=== PATIENT | female | born 1945 | race Two or more races ===

== ENCOUNTER 2016-12-05 19:28 | Inpatient (IN) | payer MEDICAID, MEDICARE ==
[~2016-12-05] VITALS: Ht 165.1 cm; Wt 93.0 kg
[2016-12-05 19:52] VITALS: BP 153/75
[2016-12-05 20:44] LABS: BASOPHILS % (AUTO) 0.4 % (0.0-2.0); DIFF TOTAL % 100 %; EOSINOPHILS # (AUTO) 0.1 /CMM (0.0-0.7); EOSINOPHILS % (AUTO) 2.6 % (0.0-6.0); HEMATOCRIT 22 % (33-45); HEMOGLOBIN 7.2 g/dL (11.5-14.8); LYMPHOCYTES # (AUTO) 1.2 /CMM (0.8-4.8); LYMPHOCYTES % (AUTO) 25.3 % (20.0-44.0); MEAN CORPUSCULAR HEMOGLOBIN 29 PG (26.0-33.0); MEAN CORPUSCULAR HGB CONC 32 g/dl (31.0-36.0); MEAN CORPUSCULAR VOLUME 90 fL (82-100); MONOCYTES # (AUTO) 0.3 /CMM (0.1-1.30); MONOCYTES % (AUTO) 5.1 % (2.0-12.0); NEUTROPHILS # (AUTO) 3.3 /CMM (1.8-8.9); NEUTROPHILS % (AUTO) 66.6 % (43.0-81.0); PLATELET COUNT (AUTO) 165 /CMM (150-450); RED BLOOD CELL COUNT(AUTO) 2.49 MIL/uL (4.0-5.2); WHITE BLOOD COUNT (AUTO) 4.9 K/uL (4.3-11.0)
[2016-12-05 20:56] LABS: CALCIUM, SERUM 8.6 mg/dL (8.5-10.1); CREATININE 1.5 mg/dL (0.6-1.3); POTASSIUM 2.9 mmol/L (3.5-5.1)
[2016-12-05 21:00] LABS: INR 1.04 (0.87-1.13); PROTHROMBIN TIME 10.9 SECS (9.5-12.7)
[2016-12-05 21:02] LABS: ALBUMIN 2.7 g/dL (3.4-5.0); BILIRUBIN,DIRECT 0.2 mg/dL (0.0-0.2); BILIRUBIN,TOTAL 0.5 mg/dL (0.2-1.0); INDIRECT BILIRUBIN 0.3 mg/dL (0.0-1.1); TOTAL PROTEIN, SERUM 6.8 g/dL (6.4-8.2)
[2016-12-05 21:07] VITALS: BP 153/75
[2016-12-05 21:09] LABS: IRON, SERUM 70 ug/dl (50-175); PERCENT SATURATION 39 % (14-33); TOTAL IRON BINDING CAPACITY 182 ug/dl (250-450)
[2016-12-05] MEDS ORDERED: ISOS5TAB PO (21:37)
[2016-12-05] MEDS ORDERED: CARV6.25 PO (21:37)
[2016-12-05] MEDS ORDERED: VIT1TABL44 GT (21:37)
[2016-12-05] MEDS ORDERED: DARB150D IV (21:37)
[2016-12-05] MEDS ORDERED: ROPI0.5T GT (21:37)
[2016-12-05] MEDS ORDERED: CLOP75TA2 GT (21:37)
[2016-12-05] MEDS ORDERED: ATOR20TA PO (21:37)
[2016-12-05] MEDS ORDERED: BUSP5TAB3 PO (21:37)
[2016-12-05] MEDS ORDERED: GABA-532 PO (21:37)
[2016-12-05] MEDS ORDERED: OMEP40CA37 PO (21:37)
[2016-12-05] MEDS ORDERED: FERR300L PO (21:37)
[2016-12-05] MEDS ORDERED: ASPI81TA2 PO (21:37)
[2016-12-05] MEDS ORDERED: HYDR-3326 GT (21:37)
[2016-12-05] MEDS ORDERED: IRON100V2 IV (21:37)
[2016-12-05] MEDS ORDERED: DOCU-25 PO (21:37)
[2016-12-05 21:52] VITALS: BP 145/66
[2016-12-05] MEDS ORDERED: HYDROCODONE/APAP 5/325MG 1 EACH TABLET ONE (23:01)
[2016-12-05] MEDS: HYDROCODONE/APAP 5/325MG 1 EACH TABLET GT PRN (23:06)
[2016-12-05 23:30] VITALS: BP 158/72
[2016-12-06] VITALS (11 sets, daily range): BP systolic 128–158; BP diastolic 41–101
[2016-12-06] MEDS ORDERED: [UNRECOGNIZED DRUG - OTHER] IV SCH (00:30)
[2016-12-06] MEDS ORDERED: IRON SUCROSE COMPLEX IV SCH (00:30)
[2016-12-06] MEDS ORDERED: DARBEPOETIN ALFA IV SCH (00:30)
[2016-12-06] MEDS ORDERED: IV NS 0.9% 250 ML IV ONE (01:33)
[2016-12-06] MEDS ORDERED: BLOOD IV SET 1 EA INFUS.SET MC ONE (01:33)
[2016-12-06] MEDS ORDERED: HYDROCODONE/APAP 5/325MG 1 EACH TABLET ONE (02:56)
[2016-12-06] MEDS: HYDROCODONE/APAP 5/325MG 1 EACH TABLET GT PRN (03:01)
[2016-12-06] MEDS ORDERED: LORAZEPAM 1 MG TABLET ONE (03:21)
[2016-12-06] MEDS: LORAZEPAM 1 MG TABLET GT PRN ×3 (03:24→21:08)
[2016-12-06] MEDS ORDERED: RENAL NOVASOURCE 1,000 ML BOTTLE GT SCH (07:00)
[2016-12-06] MEDS: HYDROCODONE/APAP 5/325MG 1 EACH TABLET GT SCH ×4 (08:43→21:09)
[2016-12-06] MEDS: VIT B CMPLX 3/FA/VIT C/BIOTIN 1 TAB TABLET GT SCH (08:54)
[2016-12-06] MEDS: FERROUS SULFATE UDC 300 MG/5 ML UDC PO SCH (08:54)
[2016-12-06] MEDS: DOCUSATE SODIUM LIQ 100 MG/10 ML UDC GT SCH ×2 (08:54→16:08)
[2016-12-06] MEDS: ropiniROLE 0.5 MG TABLET GT SCH ×3 (08:54→16:07)
[2016-12-06] MEDS: GABAPENTIN 100 MG CAPSULE GT SCH ×3 (08:55→16:08)
[2016-12-06] MEDS: busPIRone 5 MG TABLET GT SCH ×2 (08:55→16:08)
[2016-12-06] MEDS: CARVEDILOL 6.25 MG TABLET GT SCH (08:55)
[2016-12-06] MEDS: ISOSORBIDE DINITRATE (5MG) 5 MG TABLET GT SCH ×3 (08:55→16:08)
[2016-12-06] MEDS ORDERED: Medication Not On Formulary EA (Omeprazole 40 MG) PO SCH (09:00)
[2016-12-06] MEDS: PANTOPRAZOLE 40 MG/PACK PACK GT SCH ×2 (09:02→21:06)
[2016-12-06 14:00] LABS: RETICULOCYTE COUNT 2.9 % (0.6-2.5)
[2016-12-06] MEDS ORDERED: Z GUARD REMEDY 2 OZ OINT TP PRN (14:30)
[2016-12-06 14:36] LABS: BASOPHILS % (AUTO) 0.3 % (0.0-2.0); DIFF TOTAL % 100 %; EOSINOPHILS # (AUTO) 0.1 /CMM (0.0-0.7); EOSINOPHILS % (AUTO) 1.7 % (0.0-6.0); HEMATOCRIT 23 % (33-45); HEMOGLOBIN 7.5 g/dL (11.5-14.8); LYMPHOCYTES # (AUTO) 1.2 /CMM (0.8-4.8); LYMPHOCYTES % (AUTO) 21.5 % (20.0-44.0); MEAN CORPUSCULAR HEMOGLOBIN 30 PG (26.0-33.0); MEAN CORPUSCULAR HGB CONC 33 g/dl (31.0-36.0); MEAN CORPUSCULAR VOLUME 89 fL (82-100); MONOCYTES # (AUTO) 0.3 /CMM (0.1-1.30); MONOCYTES % (AUTO) 5.2 % (2.0-12.0); NEUTROPHILS # (AUTO) 3.9 /CMM (1.8-8.9); NEUTROPHILS % (AUTO) 71.3 % (43.0-81.0); PLATELET COUNT (AUTO) 128 /CMM (150-450); RED BLOOD CELL COUNT(AUTO) 2.53 MIL/uL (4.0-5.2); WHITE BLOOD COUNT (AUTO) 5.5 K/uL (4.3-11.0)
[2016-12-06] MEDS ORDERED: EPOETIN ALFA (10,000 UNIT) 10,000 UNIT/ML VIAL IV ONE (15:00)
[2016-12-06 15:05] LABS: CREATININE 1.5 mg/dL (0.6-1.3); POTASSIUM 3.1 mmol/L (3.5-5.1)
[2016-12-06 15:21] LABS: THYROID STIMULATING HORMONE 0.428 uIU/mL (0.358-3.74); URIC ACID 2.2 mg/dL (2.6-7.2)
[2016-12-06] MEDS: HYDROGEL DRESSING 90 GM TUBE TP SCH (16:07)
[2016-12-06] MEDS: Z GUARD REMEDY 2 OZ OINT TP SCH ×2 (16:07→16:15)
[2016-12-06] MEDS: ATORVASTATIN 10 MG TABLET GT SCH (21:06)
[2016-12-07] VITALS (8 sets, daily range): BP systolic 109–139; BP diastolic 50–71
[2016-12-07] MEDS: LORAZEPAM 1 MG TABLET GT PRN ×2 (06:32→22:31)
[2016-12-07] MEDS: FERROUS SULFATE UDC 300 MG/5 ML UDC PO SCH (08:33)
[2016-12-07] MEDS: DOCUSATE SODIUM LIQ 100 MG/10 ML UDC GT SCH ×2 (08:33→17:03)
[2016-12-07] MEDS: VIT B CMPLX 3/FA/VIT C/BIOTIN 1 TAB TABLET GT SCH (08:33)
[2016-12-07] MEDS: ISOSORBIDE DINITRATE (5MG) 5 MG TABLET GT SCH ×3 (08:34→17:03)
[2016-12-07 08:35] LABS: BASOPHILS % (AUTO) 0.2 % (0.0-2.0); DIFF TOTAL % 100 %; EOSINOPHILS # (AUTO) 0.1 /CMM (0.0-0.7); EOSINOPHILS % (AUTO) 2.9 % (0.0-6.0); HEMATOCRIT 24 % (33-45); HEMOGLOBIN 7.8 g/dL (11.5-14.8); LYMPHOCYTES % (AUTO) 19.4 % (20.0-44.0); MEAN CORPUSCULAR HEMOGLOBIN 30 PG (26.0-33.0); MEAN CORPUSCULAR HGB CONC 33 g/dl (31.0-36.0); MEAN CORPUSCULAR VOLUME 90 fL (82-100); MONOCYTES # (AUTO) 0.4 /CMM (0.1-1.30); NEUTROPHILS # (AUTO) 3.5 /CMM (1.8-8.9); NEUTROPHILS % (AUTO) 70.5 % (43.0-81.0); PLATELET COUNT (AUTO) 147 /CMM (150-450); RED BLOOD CELL COUNT(AUTO) 2.63 MIL/uL (4.0-5.2)
[2016-12-07] MEDS: PANTOPRAZOLE 40 MG/PACK PACK GT SCH ×2 (08:35→22:32)
[2016-12-07] MEDS: ropiniROLE 0.5 MG TABLET GT SCH ×3 (08:35→17:02)
[2016-12-07] MEDS: GABAPENTIN 100 MG CAPSULE GT SCH ×3 (08:35→17:02)
[2016-12-07] MEDS: busPIRone 5 MG TABLET GT SCH ×2 (08:36→17:02)
[2016-12-07] MEDS: HYDROCODONE/APAP 5/325MG 1 EACH TABLET GT SCH ×4 (08:38→22:31)
[2016-12-07] MEDS: CARVEDILOL 6.25 MG TABLET GT SCH (08:38)
[2016-12-07 08:39] LABS: CALCIUM, SERUM 7.7 mg/dL (8.5-10.1); CREATININE 2.1 mg/dL (0.6-1.3); POTASSIUM 3.2 mmol/L (3.5-5.1)
[2016-12-07] MEDS: Z GUARD REMEDY 2 OZ OINT TP SCH ×2 (08:39→17:05)
[2016-12-07] MEDS: HYDROGEL DRESSING 90 GM TUBE TP SCH (08:40)
[2016-12-07] MEDS ORDERED: POTASSIUM CHLORIDE 20 MEQ TAB.PRT.SR PO ONE (13:00)
[2016-12-07] MEDS: MAGNESIUM HYDROXIDE 30 ML UDC PO PRN (17:04)
[2016-12-07] MEDS: RENAL NOVASOURCE 1,000 ML BOTTLE GT SCH (17:05)
[2016-12-07] MEDS: ATORVASTATIN 10 MG TABLET GT SCH (22:30)
[2016-12-08] VITALS (12 sets, daily range): BP systolic 120–159; BP diastolic 51–85
[2016-12-08 06:40] LABS: BASOPHILS % (AUTO) 0.4 % (0.0-2.0); DIFF TOTAL % 100 %; EOSINOPHILS # (AUTO) 0.2 /CMM (0.0-0.7); EOSINOPHILS % (AUTO) 3.7 % (0.0-6.0); HEMATOCRIT 22 % (33-45); HEMOGLOBIN 7.2 g/dL (11.5-14.8); LYMPHOCYTES # (AUTO) 1.6 /CMM (0.8-4.8); LYMPHOCYTES % (AUTO) 36.8 % (20.0-44.0); MEAN CORPUSCULAR HEMOGLOBIN 30 PG (26.0-33.0); MEAN CORPUSCULAR HGB CONC 33 g/dl (31.0-36.0); MEAN CORPUSCULAR VOLUME 89 fL (82-100); MONOCYTES # (AUTO) 0.4 /CMM (0.1-1.30); MONOCYTES % (AUTO) 8.2 % (2.0-12.0); NEUTROPHILS # (AUTO) 2.2 /CMM (1.8-8.9); NEUTROPHILS % (AUTO) 50.9 % (43.0-81.0); PLATELET COUNT (AUTO) 131 /CMM (150-450); RED BLOOD CELL COUNT(AUTO) 2.41 MIL/uL (4.0-5.2); WHITE BLOOD COUNT (AUTO) 4.3 K/uL (4.3-11.0)
[2016-12-08 06:50] LABS: CALCIUM, SERUM 7.4 mg/dL (8.5-10.1); CREATININE 2.5 mg/dL (0.6-1.3); POTASSIUM 3.7 mmol/L (3.5-5.1)
[2016-12-08] MEDS: GABAPENTIN 100 MG CAPSULE GT SCH ×3 (08:59→16:47)
[2016-12-08] MEDS: DOCUSATE SODIUM LIQ 100 MG/10 ML UDC GT SCH ×2 (09:00→16:46)
[2016-12-08] MEDS: VIT B CMPLX 3/FA/VIT C/BIOTIN 1 TAB TABLET GT SCH (09:00)
[2016-12-08] MEDS: PANTOPRAZOLE 40 MG/PACK PACK GT SCH ×2 (09:00→21:03)
[2016-12-08] MEDS: ropiniROLE 0.5 MG TABLET GT SCH ×3 (09:00→16:46)
[2016-12-08] MEDS: ISOSORBIDE DINITRATE (5MG) 5 MG TABLET GT SCH ×3 (09:00→16:48)
[2016-12-08] MEDS: busPIRone 5 MG TABLET GT SCH ×2 (09:00→16:47)
[2016-12-08] MEDS: FERROUS SULFATE UDC 300 MG/5 ML UDC PO SCH (09:00)
[2016-12-08] MEDS: CARVEDILOL 6.25 MG TABLET GT SCH ×2 (09:00→13:30)
[2016-12-08] MEDS: HYDROCODONE/APAP 5/325MG 1 EACH TABLET GT SCH ×3 (09:02→16:50)
[2016-12-08] MEDS: HYDROGEL DRESSING 90 GM TUBE TP SCH (09:03)
[2016-12-08] MEDS: Z GUARD REMEDY 2 OZ OINT TP SCH ×2 (09:03→16:50)
[2016-12-08 10:19] LABS: VIT D, 25-HYDROXY 9.3 ng/mL (30.0-100.0)
[2016-12-08] MEDS ORDERED: BLOOD IV SET 1 EA INFUS.SET MC ONE (10:31)
[2016-12-08] MEDS ORDERED: MORPHINE SULFATE INJ 2 MG/ML DISP.SYRIN IV ONE (11:30)
[2016-12-08] MEDS: MAGNESIUM HYDROXIDE 30 ML UDC PO PRN (13:30)
[2016-12-08] MEDS: BISACODYL SUPP (10 MG) 10 MG/SUPP.RECT SUPP.RECT RC PRN (16:47)
[2016-12-08] MEDS: ATORVASTATIN 10 MG TABLET GT SCH (21:03)
[2016-12-08] MEDS: RENAL NOVASOURCE 1,000 ML BOTTLE GT SCH (21:03)
[2016-12-08] MEDS: HYDROMORPHONE 1 MG/1 ML DISP.SYRIN IV PRN (21:12)
[2016-12-09] VITALS (13 sets, daily range): BP systolic 98–144; BP diastolic 51–66
[2016-12-09] MEDS ORDERED: BLOOD IV SET 1 EA INFUS.SET MC ONE (00:51)
[2016-12-09] MEDS ORDERED: IV NS 0.9% 250 ML IV ONE (00:51)
[2016-12-09] MEDS: oxyCODONE IR immediate release 5 MG CAPSULE PO PRN (01:41)
[2016-12-09] MEDS: LORAZEPAM 1 MG TABLET GT PRN ×2 (03:00→15:38)
[2016-12-09 07:40] LABS: BASOPHILS % (AUTO) 0.5 % (0.0-2.0); DIFF TOTAL % 100 %; EOSINOPHILS # (AUTO) 0.2 /CMM (0.0-0.7); EOSINOPHILS % (AUTO) 3.2 % (0.0-6.0); HEMATOCRIT 29 % (33-45); HEMOGLOBIN 9.6 g/dL (11.5-14.8); LYMPHOCYTES # (AUTO) 1.3 /CMM (0.8-4.8); LYMPHOCYTES % (AUTO) 26.6 % (20.0-44.0); MEAN CORPUSCULAR HEMOGLOBIN 29 PG (26.0-33.0); MEAN CORPUSCULAR HGB CONC 33 g/dl (31.0-36.0); MEAN CORPUSCULAR VOLUME 88 fL (82-100); MONOCYTES # (AUTO) 0.3 /CMM (0.1-1.30); MONOCYTES % (AUTO) 7.2 % (2.0-12.0); NEUTROPHILS % (AUTO) 62.5 % (43.0-81.0); PLATELET COUNT (AUTO) 134 /CMM (150-450); WHITE BLOOD COUNT (AUTO) 4.8 K/uL (4.3-11.0)
[2016-12-09 07:55] LABS: CALCIUM, SERUM 7.6 mg/dL (8.5-10.1); CREATININE 2.4 mg/dL (0.6-1.3); POTASSIUM 3.8 mmol/L (3.5-5.1)
[2016-12-09] MEDS: ISOSORBIDE DINITRATE (5MG) 5 MG TABLET GT SCH ×3 (08:53→16:36)
[2016-12-09] MEDS: busPIRone 5 MG TABLET GT SCH ×2 (08:53→16:36)
[2016-12-09] MEDS: PANTOPRAZOLE 40 MG/PACK PACK GT SCH ×2 (08:54→20:56)
[2016-12-09] MEDS: GABAPENTIN 100 MG CAPSULE GT SCH ×3 (08:54→16:36)
[2016-12-09] MEDS: ropiniROLE 0.5 MG TABLET GT SCH ×3 (08:54→16:36)
[2016-12-09] MEDS: VIT B CMPLX 3/FA/VIT C/BIOTIN 1 TAB TABLET GT SCH (08:54)
[2016-12-09] MEDS: DOCUSATE SODIUM LIQ 100 MG/10 ML UDC GT SCH ×2 (08:54→16:35)
[2016-12-09] MEDS: FERROUS SULFATE UDC 300 MG/5 ML UDC PO SCH (08:54)
[2016-12-09] MEDS: CARVEDILOL 6.25 MG TABLET GT SCH (08:59)
[2016-12-09] MEDS: Z GUARD REMEDY 2 OZ OINT TP SCH ×2 (09:06→16:38)
[2016-12-09] MEDS: HYDROGEL DRESSING 90 GM TUBE TP SCH (09:06)
[2016-12-09] MEDS: HYDROMORPHONE 1 MG/1 ML DISP.SYRIN IV PRN ×3 (09:52→20:57)
[2016-12-09] MEDS ORDERED: IV SET PRIMARY PUMP SET 1 EA INFUS.SET MC ONE (17:32)
[2016-12-09] MEDS: CEFTRIAXONE 1 G in IV D5W 50 ML IV SCH (17:33)
[2016-12-09] MEDS: RENAL NOVASOURCE 1,000 ML BOTTLE GT SCH (20:57)
[2016-12-09] MEDS: ATORVASTATIN 10 MG TABLET GT SCH (21:00)
[2016-12-10] VITALS (7 sets, daily range): BP systolic 100–135; BP diastolic 46–84
[2016-12-10 07:47] LABS: BASOPHILS % (AUTO) 0.2 % (0.0-2.0); DIFF TOTAL % 100 %; EOSINOPHILS # (AUTO) 0.2 /CMM (0.0-0.7); EOSINOPHILS % (AUTO) 3.7 % (0.0-6.0); HEMATOCRIT 29 % (33-45); HEMOGLOBIN 9.7 g/dL (11.5-14.8); LYMPHOCYTES # (AUTO) 1.3 /CMM (0.8-4.8); LYMPHOCYTES % (AUTO) 23.2 % (20.0-44.0); MEAN CORPUSCULAR HEMOGLOBIN 29 PG (26.0-33.0); MEAN CORPUSCULAR HGB CONC 33 g/dl (31.0-36.0); MEAN CORPUSCULAR VOLUME 89 fL (82-100); MONOCYTES # (AUTO) 0.4 /CMM (0.1-1.30); MONOCYTES % (AUTO) 7.4 % (2.0-12.0); NEUTROPHILS # (AUTO) 3.6 /CMM (1.8-8.9); NEUTROPHILS % (AUTO) 65.5 % (43.0-81.0); PLATELET COUNT (AUTO) 134 /CMM (150-450); RED BLOOD CELL COUNT(AUTO) 3.31 MIL/uL (4.0-5.2); WHITE BLOOD COUNT (AUTO) 5.5 K/uL (4.3-11.0)
[2016-12-10] MEDS: ISOSORBIDE DINITRATE (5MG) 5 MG TABLET GT SCH ×3 (08:12→16:39)
[2016-12-10] MEDS: DOCUSATE SODIUM LIQ 100 MG/10 ML UDC GT SCH ×2 (08:12→16:38)
[2016-12-10] MEDS: ropiniROLE 0.5 MG TABLET GT SCH ×3 (08:12→16:39)
[2016-12-10] MEDS: PANTOPRAZOLE 40 MG/PACK PACK GT SCH ×2 (08:12→21:09)
[2016-12-10] MEDS: FERROUS SULFATE UDC 300 MG/5 ML UDC PO SCH (08:12)
[2016-12-10] MEDS: GABAPENTIN 100 MG CAPSULE GT SCH ×3 (08:12→16:39)
[2016-12-10] MEDS: VIT B CMPLX 3/FA/VIT C/BIOTIN 1 TAB TABLET GT SCH (08:12)
[2016-12-10] MEDS: busPIRone 5 MG TABLET GT SCH ×2 (08:13→16:39)
[2016-12-10] MEDS: CARVEDILOL 6.25 MG TABLET GT SCH (08:13)
[2016-12-10 08:24] LABS: CALCIUM, SERUM 7.5 mg/dL (8.5-10.1); CREATININE 2.9 mg/dL (0.6-1.3); POTASSIUM 3.8 mmol/L (3.5-5.1)
[2016-12-10] MEDS: HYDROGEL DRESSING 90 GM TUBE TP SCH (09:50)
[2016-12-10] MEDS: Z GUARD REMEDY 2 OZ OINT TP SCH ×2 (09:50→16:51)
[2016-12-10] MEDS: LORAZEPAM 1 MG TABLET GT PRN ×2 (09:56→23:13)
[2016-12-10] MEDS: oxyCODONE IR immediate release 5 MG CAPSULE PO PRN ×2 (09:57→16:22)
[2016-12-10] MEDS: HYDROMORPHONE 1 MG/1 ML DISP.SYRIN IV PRN ×2 (13:30→21:10)
[2016-12-10] MEDS: BISACODYL SUPP (10 MG) 10 MG/SUPP.RECT SUPP.RECT RC PRN (14:39)
[2016-12-10] MEDS: CEFTRIAXONE 1 G in IV D5W 50 ML IV SCH (16:44)
[2016-12-10] MEDS: ATORVASTATIN 10 MG TABLET GT SCH (21:09)
[2016-12-10] MEDS: HEPARIN SODIUM, PORCINE 5000 UNITS/1 ML VIAL SQ SCH (21:10)
[2016-12-10] MEDS: RENAL NOVASOURCE 1,000 ML BOTTLE GT SCH (21:10)
[2016-12-11] VITALS: BP 131/55
[2016-12-11] MEDS: HYDROMORPHONE 1 MG/1 ML DISP.SYRIN IV PRN ×2 (03:18→12:46)
[2016-12-11 04:00] VITALS: BP 102/64
[2016-12-11 08:00] VITALS: BP 127/59
[2016-12-11] MEDS: PANTOPRAZOLE 40 MG/PACK PACK GT SCH (08:03)
[2016-12-11] MEDS: DOCUSATE SODIUM LIQ 100 MG/10 ML UDC GT SCH ×2 (08:03→17:58)
[2016-12-11] MEDS: FERROUS SULFATE UDC 300 MG/5 ML UDC PO SCH (08:03)
[2016-12-11] MEDS: busPIRone 5 MG TABLET GT SCH ×2 (08:03→17:59)
[2016-12-11] MEDS: CARVEDILOL 6.25 MG TABLET GT SCH (08:04)
[2016-12-11] MEDS: VIT B CMPLX 3/FA/VIT C/BIOTIN 1 TAB TABLET GT SCH (08:04)
[2016-12-11] MEDS: ropiniROLE 0.5 MG TABLET GT SCH ×3 (08:04→17:58)
[2016-12-11] MEDS: ISOSORBIDE DINITRATE (5MG) 5 MG TABLET GT SCH ×3 (08:04→17:58)
[2016-12-11] MEDS: oxyCODONE IR immediate release 5 MG CAPSULE PO PRN ×2 (08:04→17:58)
[2016-12-11] MEDS: GABAPENTIN 100 MG CAPSULE GT SCH ×3 (08:05→17:58)
[2016-12-11] MEDS: HYDROGEL DRESSING 90 GM TUBE TP SCH (08:05)
[2016-12-11] MEDS: Z GUARD REMEDY 2 OZ OINT TP SCH ×2 (08:06→17:59)
[2016-12-11] MEDS: HEPARIN SODIUM, PORCINE 5000 UNITS/1 ML VIAL SQ SCH (08:07)
[2016-12-11 08:15] LABS: CALCIUM, SERUM 8.1 mg/dL (8.5-10.1); CREATININE 2.4 mg/dL (0.6-1.3); POTASSIUM 3.7 mmol/L (3.5-5.1)
[2016-12-11 08:37] LABS: BASOPHILS % (AUTO) 0.3 % (0.0-2.0); DIFF TOTAL % 100 %; EOSINOPHILS # (AUTO) 0.2 /CMM (0.0-0.7); EOSINOPHILS % (AUTO) 3.1 % (0.0-6.0); HEMATOCRIT 29 % (33-45); HEMOGLOBIN 9.5 g/dL (11.5-14.8); LYMPHOCYTES # (AUTO) 1.2 /CMM (0.8-4.8); LYMPHOCYTES % (AUTO) 23.7 % (20.0-44.0); MEAN CORPUSCULAR HEMOGLOBIN 30 PG (26.0-33.0); MEAN CORPUSCULAR HGB CONC 33 g/dl (31.0-36.0); MEAN CORPUSCULAR VOLUME 89 fL (82-100); MONOCYTES # (AUTO) 0.4 /CMM (0.1-1.30); MONOCYTES % (AUTO) 8.5 % (2.0-12.0); NEUTROPHILS # (AUTO) 3.3 /CMM (1.8-8.9); NEUTROPHILS % (AUTO) 64.4 % (43.0-81.0); PLATELET COUNT (AUTO) 126 /CMM (150-450); WHITE BLOOD COUNT (AUTO) 5.1 K/uL (4.3-11.0)
[2016-12-11 16:09] VITALS: BP 144/68
[2016-12-11] MEDS: CEFTRIAXONE 1 G in IV D5W 50 ML IV SCH (17:00)
[2016-12-11 17:58] VITALS: BP 144/68
== END 2016-12-11 19:00 | DRG 460 ==
LOC: ER 19:31 → TELE 22:36
PROVIDERS: ADMIT Internal Medicine; ATTEND Internal Medicine
PROC: 5A1955Z Respiratory Ventilation, Greater than 96 Consecutive Hours (ICD-10-PCS; principal; 2016-12-05)
PROC: 05H533Z Insertion of Infusion Device into Right Subclavian Vein, Percutaneous Approach (ICD-10-PCS; principal; 2016-12-05)
PROC: 30233N1 Transfusion of Nonautologous Red Blood Cells into Peripheral Vein, Percutaneous Approach (ICD-10-PCS; 2016-12-06)
PROC: 5A1D60Z (ICD-10-PCS; 2016-12-06)
DX: I12.0 Hypertensive chronic kidney disease with stage 5 chronic kidney disease or end stage renal disease (principal); Z99.11 Dependence on respirator [ventilator] status; L89.150 Pressure ulcer of sacral region, unstageable; J96.11 Chronic respiratory failure with hypoxia; J44.0 Chronic obstructive pulmonary disease with (acute) lower respiratory infection; Z93.0 Tracheostomy status; R13.10 Dysphagia, unspecified; N18.6 End stage renal disease; E11.22 Type 2 diabetes mellitus with diabetic chronic kidney disease; D63.1 Anemia in chronic kidney disease; Z99.2 Dependence on renal dialysis; Z93.1 Gastrostomy status; Z86.73 Personal history of transient ischemic attack (TIA), and cerebral infarction without residual deficits; I25.10 Atherosclerotic heart disease of native coronary artery without angina pectoris; G47.33 Obstructive sleep apnea (adult) (pediatric); F33.1 Major depressive disorder, recurrent, moderate; E78.5 Hyperlipidemia, unspecified; E11.40 Type 2 diabetes mellitus with diabetic neuropathy, unspecified; E03.9 Hypothyroidism, unspecified; D50.9 Iron deficiency anemia, unspecified; D62 Acute posthemorrhagic anemia; F41.9 Anxiety disorder, unspecified; M79.669 Pain in unspecified lower leg; K59.09 Other constipation; D35.01 Benign neoplasm of right adrenal gland; E87.6 Hypokalemia; J98.11 Atelectasis; Z87.891 Personal history of nicotine dependence
CPT/HCPCS: 31720; 36415; 36569; 71010-TC; 71035-TC; 71250-TC; 74000-TC; 80048-TC; 80076-TC; 82272-TC; 82306; 82378; 82728-TC; 82746; 83010; 83540-TC; 83615-TC; 84443-TC; 84550-TC; 85025-TC; 85045-TC; 85652-TC; 85730-TC; 86850-TC; 86901; 86921-TC; 87070-TC; 87081-TC; 87186-TC; 90935-TC; 93925-TC; 94002-TC; 94003-TC; 94640-TC; 99082-TC; A4606; A6402; A6403; A7526; J0696; J1170; J1644; J2270; J7050; J7060; P9016-BL; Z7610

== ENCOUNTER 2017-01-07 18:47 | Inpatient (IN) | payer MEDICAID, MEDICARE ==
[~2017-01-07] VITALS: Ht 162.6 cm; Wt 81.2 kg
[~2017-01-07 18:47] MED LIST: ASPI81TA2 PO; ATOR20TA PO; BUSP5TAB3 PO; CARV6.25 PO; CLOP75TA2 GT; DARB150D IV; DOCU-25 PO; FERR300L PO; GABA-532 PO; HYDR-3326 GT; IRON100V2 IV; ISOS5TAB PO; OMEP40CA37 PO; ROPI0.5T GT; VIT1TABL44 GT
[2017-01-07 19:23] LABS: BASOPHILS # (AUTO) 0.1 /CMM (0.0-0.2); BASOPHILS % (AUTO) 1.2 % (0.0-2.0); DIFF TOTAL % 100 %; EOSINOPHILS # (AUTO) 0.2 /CMM (0.0-0.7); EOSINOPHILS % (AUTO) 2.1 % (0.0-6.0); HEMATOCRIT 39 % (33-45); HEMOGLOBIN 12.7 g/dL (11.5-14.8); LYMPHOCYTES # (AUTO) 3.7 /CMM (0.8-4.8); LYMPHOCYTES % (AUTO) 33.3 % (20.0-44.0); MEAN CORPUSCULAR HEMOGLOBIN 29 PG (26.0-33.0); MEAN CORPUSCULAR HGB CONC 32 g/dl (31.0-36.0); MEAN CORPUSCULAR VOLUME 91 fL (82-100); MONOCYTES # (AUTO) 0.4 /CMM (0.1-1.30); NEUTROPHILS # (AUTO) 6.7 /CMM (1.8-8.9); NEUTROPHILS % (AUTO) 59.4 % (43.0-81.0); PLATELET COUNT (AUTO) 259 /CMM (150-450); RED BLOOD CELL COUNT(AUTO) 4.31 MIL/uL (4.0-5.2); WHITE BLOOD COUNT (AUTO) 11.1 K/uL (4.3-11.0)
[2017-01-07 19:37] LABS: ANION GAP 12 (5-14); CALCIUM, SERUM 9.7 mg/dL (8.5-10.1); CARBON DIOXIDE 28 mmol/L (21-32); CHLORIDE 101 mmol/L (98-107); CREATININE 1.7 mg/dL (0.6-1.3); GLUCOSE 147 mg/dL (74-106); POTASSIUM 3.5 mmol/L (3.5-5.1); SODIUM SERUM 138 mmol/L (136-145); UREA NITROGEN, BLOOD 12 mg/dL (7-18)
[2017-01-07 19:40] LABS: INR 0.99 (0.87-1.13); PROTHROMBIN TIME 10.4 SECS (9.5-12.7)
[2017-01-07 19:43] LABS: ALANINE AMINOTRANSFERASE 18 U/L (12-78); ALBUMIN 3.7 g/dL (3.4-5.0); ASPARTATE AMINOTRANSFERASE 28 U/L (15-37); BILIRUBIN,DIRECT 0.2 mg/dL (0.0-0.2); BILIRUBIN,TOTAL 0.7 mg/dL (0.2-1.0); INDIRECT BILIRUBIN 0.5 mg/dL (0.0-1.1); TOTAL PROTEIN, SERUM 8.7 g/dL (6.4-8.2)
[2017-01-07 19:45] LABS: LACTIC ACID 1.6 mmol/L (0.4-2.0); TROPONIN I < 0.017 ng/mL (0.00-0.056)
[2017-01-07] MEDS ORDERED: PROPOFOL 100 ML IV ONE (19:57)
[2017-01-07] MEDS ORDERED: IV SET PRIMARY PUMP SET 1 EA INFUS.SET MC ONE ×2 (19:57→22:53)
[2017-01-07] MEDS ORDERED: LORAZEPAM INJ 2 MG/ML VIAL IV ONE (20:00)
[2017-01-07] MEDS ORDERED: VANCOMYCIN 1 GM in IV D5W 250 ML IV SCH (21:30)
[2017-01-07] MEDS ORDERED: ONDANSETRON HCL/PF 4 MG/2 ML VIAL IVP PRN (22:30)
[2017-01-07] MEDS ORDERED: ACETAMINOPHEN 650 MG/SUPP.RECT RC PRN (22:30)
[2017-01-07] MEDS ORDERED: IV D5W 250 ML IV ONE (22:53)
[2017-01-07] MEDS ORDERED: VANCOMYCIN 1 GM VIAL ONE (22:53)
[2017-01-07] MEDS ORDERED: IV D5W 50 ML IV ONE (22:54)
[2017-01-07] MEDS ORDERED: SECONDARY IV SET 1 EA INFUS.SET MC ONE (22:54)
[2017-01-07] MEDS ORDERED: IV NS 0.9% 250 ML IV ONE (22:54)
[2017-01-07] MEDS ORDERED: PIPERACILLIN /TAZOBACTAM 2.25 G VIAL IV ONE (22:55)
[2017-01-07] MEDS ORDERED: PROPOFOL 200 MG/20 ML VIAL IV ONE ×3 (23:00)
[2017-01-07 23:07] VITALS: BP 141/64
[2017-01-07] MEDS: IV NS 0.9% 250 ML IV PRN (23:22)
[2017-01-07] MEDS: PIPERACILLIN /TAZOBACTAM 2.25 G in IV D5W 50 ML IV SCH (23:49)
[2017-01-07 23:51] LABS: ABG BASE EXCESS 2.4 mmol/L; ABG HCO3 24.1 mmol/L; ABG PCO2 28.3 mmHg (35.0-45.0); ABG PH 7.548 (7.350-7.450); ABG PO2 138.6 mmHg (75.0-100.0); ABG TOTAL HEMOGLOBIN 11.2 G/dL (12.0-16.0); ALLEN TEST Pass; AaDO2 114.1 mmHg; O2Hb 96.7 % (94.0-97.0)
[2017-01-08] VITALS (32 sets, daily range): BP systolic 75–138; BP diastolic 31–80
[2017-01-08] MEDS ORDERED: PIPERACILLIN /TAZOBACTAM 2.25 G in IV D5W 50 ML IV SCH ×2
[2017-01-08 04:35] LABS: BASOPHILS % (AUTO) 0.3 % (0.0-2.0); DIFF TOTAL % 100 %; EOSINOPHILS % (AUTO) 0.1 % (0.0-6.0); HEMATOCRIT 31 % (33-45); LYMPHOCYTES % (AUTO) 13.4 % (20.0-44.0); MEAN CORPUSCULAR HEMOGLOBIN 30 PG (26.0-33.0); MEAN CORPUSCULAR HGB CONC 32 g/dl (31.0-36.0); MEAN CORPUSCULAR VOLUME 92 fL (82-100); MONOCYTES # (AUTO) 0.4 /CMM (0.1-1.30); MONOCYTES % (AUTO) 5.5 % (2.0-12.0); NEUTROPHILS # (AUTO) 6.3 /CMM (1.8-8.9); NEUTROPHILS % (AUTO) 80.7 % (43.0-81.0); PLATELET COUNT (AUTO) 183 /CMM (150-450); WHITE BLOOD COUNT (AUTO) 7.8 K/uL (4.3-11.0)
[2017-01-08 04:56] LABS: ALBUMIN 2.8 g/dL (3.4-5.0); BILIRUBIN,TOTAL 0.4 mg/dL (0.2-1.0); CALCIUM, SERUM 8.4 mg/dL (8.5-10.1); CREATININE 2.1 mg/dL (0.6-1.3); PHOSPHORUS 1.8 mg/dL (2.5-4.9); POTASSIUM 3.1 mmol/L (3.5-5.1); THYROID STIMULATING HORMONE 0.39 uIU/mL (0.358-3.74); TOTAL PROTEIN, SERUM 6.8 g/dL (6.4-8.2)
[2017-01-08] MEDS: PIPERACILLIN /TAZOBACTAM 2.25 G in IV D5W 50 ML IV SCH ×3 (05:45→18:21)
[2017-01-08] MEDS ORDERED: IV D5W 50 ML IV ONE (05:54)
[2017-01-08] MEDS ORDERED: FEE PK DOSING 1 MIN EA MC ONE (07:20)
[2017-01-08] MEDS ORDERED: VANCOMYCIN 500 MG in IV D5W 100 ML IV PRN (07:30)
[2017-01-08] MEDS: HEPARIN SODIUM, PORCINE 5000 UNITS/1 ML VIAL SQ SCH ×2 (09:00→21:16)
[2017-01-08] MEDS ORDERED: Z GUARD REMEDY 2 OZ OINT TP PRN (09:00)
[2017-01-08] MEDS: Z GUARD REMEDY 2 OZ OINT TP SCH ×2 (09:05→16:49)
[2017-01-08] MEDS: MORPHINE SULFATE INJ 2 MG/ML DISP.SYRIN IM PRN ×2 (09:19→18:22)
[2017-01-08] MEDS: PANTOPRAZOLE 40 MG VIAL IV SCH (09:19)
[2017-01-08] MEDS ORDERED: POTASSIUM CL. PREMIX PERIPHER. 50 ML IV SCH (12:00)
[2017-01-08] MEDS ORDERED: Sodium Phosphate 15 MMOL in IV D5W 250 ML IV ONE (13:00)
[2017-01-08] MEDS ORDERED: POTASSIUM CHLORIDE 20 MEQ POWDER PACKET GT ONE (13:00)
[2017-01-09] VITALS: BP 131/45
[2017-01-09] MEDS: PIPERACILLIN /TAZOBACTAM 2.25 G in IV D5W 50 ML IV SCH ×5 (00:07→23:40)
[2017-01-09] MEDS: MORPHINE SULFATE INJ 2 MG/ML DISP.SYRIN IM PRN ×4 (01:34→16:10)
[2017-01-09 04:00] VITALS: BP 124/39
[2017-01-09] MEDS: IPRATROPIUM NEB FS 0.5 MG/2.5 ML AMPUL.NEB NEB PRN ×2 (05:26→07:57)
[2017-01-09] MEDS: ALBUTEROL FS 2.5 MG/3 ML VIAL.NEB NEB PRN ×2 (05:26→07:57)
[2017-01-09 07:38] LABS: BASOPHILS % (AUTO) 0.3 % (0.0-2.0); DIFF TOTAL % 100 %; EOSINOPHILS # (AUTO) 0.3 /CMM (0.0-0.7); EOSINOPHILS % (AUTO) 5.5 % (0.0-6.0); HEMATOCRIT 31 % (33-45); HEMOGLOBIN 9.9 g/dL (11.5-14.8); LYMPHOCYTES # (AUTO) 1.2 /CMM (0.8-4.8); LYMPHOCYTES % (AUTO) 19.4 % (20.0-44.0); MEAN CORPUSCULAR HEMOGLOBIN 30 PG (26.0-33.0); MEAN CORPUSCULAR HGB CONC 32 g/dl (31.0-36.0); MEAN CORPUSCULAR VOLUME 92 fL (82-100); MONOCYTES # (AUTO) 0.4 /CMM (0.1-1.30); MONOCYTES % (AUTO) 7.2 % (2.0-12.0); NEUTROPHILS % (AUTO) 67.6 % (43.0-81.0); PLATELET COUNT (AUTO) 152 /CMM (150-450); RED BLOOD CELL COUNT(AUTO) 3.34 MIL/uL (4.0-5.2)
[2017-01-09 08:00] VITALS: BP 133/68
[2017-01-09] MEDS: HEPARIN SODIUM, PORCINE 5000 UNITS/1 ML VIAL SQ SCH ×2 (08:02→20:26)
[2017-01-09] MEDS: Z GUARD REMEDY 2 OZ OINT TP SCH ×2 (08:03→16:30)
[2017-01-09] MEDS: PANTOPRAZOLE 40 MG VIAL IV SCH (08:03)
[2017-01-09 08:06] LABS: CALCIUM, SERUM 8.1 mg/dL (8.5-10.1); PHOSPHORUS 2.8 mg/dL (2.5-4.9); POTASSIUM 3.4 mmol/L (3.5-5.1)
[2017-01-09 12:00] VITALS: BP 152/61
[2017-01-09] MEDS ORDERED: IV SET PRIMARY PUMP SET 1 EA INFUS.SET MC ONE (14:34)
[2017-01-09] MEDS ORDERED: SECONDARY IV SET 1 EA INFUS.SET MC ONE (15:05)
[2017-01-09] MEDS ORDERED: IV NS 0.9% 1,000 ML IV ONE (15:30)
[2017-01-09 16:00] VITALS: BP 97/68
[2017-01-09] MEDS: NYSTATIN CREAM 15 GM TUBE TP SCH (16:30)
[2017-01-09] MEDS ORDERED: VANCOMYCIN 1 GM in IV D5W 250 ML IV PRN (17:00)
[2017-01-09] MEDS: RENAL NOVASOURCE 1,000 ML BOTTLE GT PRN (18:19)
[2017-01-09] MEDS ORDERED: PETROLATUM,WHITE PACKET 5 GM PACKET TP PRN (18:30)
[2017-01-09 20:00] VITALS: BP 119/39
[2017-01-09] MEDS: MORPHINE SULFATE INJ 2 MG/ML DISP.SYRIN IV PRN (20:20)
[2017-01-09] MEDS: IV NS 0.9% 250 ML IV PRN (23:40)
[2017-01-10] VITALS (8 sets, daily range): BP systolic 110–139; BP diastolic 46–63
[2017-01-10] MEDS: MORPHINE SULFATE INJ 2 MG/ML DISP.SYRIN IV PRN ×5 (01:11→20:23)
[2017-01-10] MEDS: PIPERACILLIN /TAZOBACTAM 2.25 G in IV D5W 50 ML IV SCH ×3 (05:30→17:02)
[2017-01-10] MEDS: PANTOPRAZOLE 40 MG VIAL IV SCH (08:33)
[2017-01-10] MEDS: HEPARIN SODIUM, PORCINE 5000 UNITS/1 ML VIAL SQ SCH ×2 (08:34→20:23)
[2017-01-10] MEDS: NYSTATIN CREAM 15 GM TUBE TP SCH ×2 (08:35→16:34)
[2017-01-10] MEDS: Z GUARD REMEDY 2 OZ OINT TP SCH ×2 (08:36→16:34)
[2017-01-10] MEDS ORDERED: VANCOMYCIN 500 MG in IV D5W 100 ML IV PRN (17:00)
[2017-01-11] MEDS: PIPERACILLIN /TAZOBACTAM 2.25 G in IV D5W 50 ML IV SCH ×4 (00:09→17:38)
[2017-01-11] MEDS: MORPHINE SULFATE INJ 2 MG/ML DISP.SYRIN IV PRN ×4 (00:09→22:31)
[2017-01-11] MEDS: RENAL NOVASOURCE 1,000 ML BOTTLE GT PRN (00:10)
[2017-01-11 01:00] VITALS: BP 135/42
[2017-01-11 04:00] VITALS: BP_SYST 119; BP_SYST 126; BP_DIAS 43; BP_DIAS 51
[2017-01-11 08:00] VITALS: BP 127/42
[2017-01-11] MEDS: PANTOPRAZOLE 40 MG VIAL IV SCH (08:31)
[2017-01-11] MEDS: Z GUARD REMEDY 2 OZ OINT TP SCH ×2 (08:34→17:39)
[2017-01-11] MEDS: NYSTATIN CREAM 15 GM TUBE TP SCH ×2 (08:34→17:39)
[2017-01-11] MEDS: HEPARIN SODIUM, PORCINE 5000 UNITS/1 ML VIAL SQ SCH ×2 (08:34→20:20)
[2017-01-11 12:00] VITALS: BP 124/44
[2017-01-11 16:00] VITALS: BP 132/61
[2017-01-11] MEDS ORDERED: LORAZEPAM INJ 2 MG/ML VIAL IV ONE (16:00)
[2017-01-11 20:00] VITALS: BP 112/56
[2017-01-11] MEDS ORDERED: VANCOMYCIN 1 GM in IV D5W 250 ML IV SCH (20:00)
[2017-01-11] MEDS ORDERED: SECONDARY IV SET 1 EA INFUS.SET MC ONE (20:21)
[2017-01-12] VITALS: BP 122/69
[2017-01-12] MEDS: PIPERACILLIN /TAZOBACTAM 2.25 G in IV D5W 50 ML IV SCH ×3 (01:14→11:24)
[2017-01-12 04:00] VITALS: BP 121/64
[2017-01-12] MEDS: MORPHINE SULFATE INJ 2 MG/ML DISP.SYRIN IV PRN (06:47)
[2017-01-12] MEDS: IV NS 0.9% 250 ML IV PRN (07:03)
[2017-01-12 07:52] LABS: CALCIUM, SERUM 7.7 mg/dL (8.5-10.1); CREATININE 2.6 mg/dL (0.6-1.3); POTASSIUM 3.7 mmol/L (3.5-5.1)
[2017-01-12 08:00] VITALS: BP 137/53
[2017-01-12] MEDS: PANTOPRAZOLE 40 MG VIAL IV SCH (09:52)
[2017-01-12] MEDS: Z GUARD REMEDY 2 OZ OINT TP SCH (09:53)
[2017-01-12] MEDS: NYSTATIN CREAM 15 GM TUBE TP SCH (09:53)
[2017-01-12] MEDS: HEPARIN SODIUM, PORCINE 5000 UNITS/1 ML VIAL SQ SCH (09:54)
[2017-01-12 12:00] VITALS: BP 104/68
[2017-01-12] MEDS ORDERED: LACTOBACILLUS RHAMNOSUS GG 1 EACH CAP.SPRINK GT SCH (17:00)
== END 2017-01-12 15:17 | DRG 130 ==
LOC: ER 18:48 → ICU 20:51 → TELE-TD 01-08 19:42 → TELE1 01-09 08:49
PROVIDERS: ADMIT Nurse Practitioner Acute Care; ATTEND Nurse Practitioner Acute Care
PROC: 5A1955Z Respiratory Ventilation, Greater than 96 Consecutive Hours (ICD-10-PCS; principal; 2017-01-07)
PROC: 0W9B30Z Drainage of Left Pleural Cavity with Drainage Device, Percutaneous Approach (ICD-10-PCS; principal; 2017-01-07)
PROC: 0W9930Z Drainage of Right Pleural Cavity with Drainage Device, Percutaneous Approach (ICD-10-PCS; principal; 2017-01-07)
PROC: 5A1D60Z (ICD-10-PCS; 2017-01-09)
DX: J96.21 Acute and chronic respiratory failure with hypoxia (principal); J15.6 Pneumonia due to other Gram-negative bacteria; I50.33 Acute on chronic diastolic (congestive) heart failure; J15.9 Unspecified bacterial pneumonia; J18.9 Pneumonia, unspecified organism; J90 Pleural effusion, not elsewhere classified; J93.12 Secondary spontaneous pneumothorax; R53.2 Functional quadriplegia; N18.6 End stage renal disease; D68.59 Other primary thrombophilia; Z93.1 Gastrostomy status; Z86.73 Personal history of transient ischemic attack (TIA), and cerebral infarction without residual deficits; R13.10 Dysphagia, unspecified; Z99.11 Dependence on respirator [ventilator] status; J44.0 Chronic obstructive pulmonary disease with (acute) lower respiratory infection; I25.10 Atherosclerotic heart disease of native coronary artery without angina pectoris; G57.93 Unspecified mononeuropathy of bilateral lower limbs; G47.33 Obstructive sleep apnea (adult) (pediatric); F32.9 Major depressive disorder, single episode, unspecified; E78.5 Hyperlipidemia, unspecified; E11.22 Type 2 diabetes mellitus with diabetic chronic kidney disease; E03.9 Hypothyroidism, unspecified; D50.9 Iron deficiency anemia, unspecified; G62.9 Polyneuropathy, unspecified; G89.29 Other chronic pain; M54.5 Low back pain; Z93.0 Tracheostomy status; D63.8 Anemia in other chronic diseases classified elsewhere; Z86.711 Personal history of pulmonary embolism; E83.39 Other disorders of phosphorus metabolism; E87.6 Hypokalemia; I13.2 Hypertensive heart and chronic kidney disease with heart failure and with stage 5 chronic kidney disease, or end stage renal disease; K21.9 Gastro-esophageal reflux disease without esophagitis; J98.2 Interstitial emphysema; Z99.2 Dependence on renal dialysis
CPT/HCPCS: 31720; 32551; 36415; 36600; 71010-TC; 71250-TC; 80048-TC; 80053-TC; 80076-TC; 80202-TC; 82803-TC; 82962-TC; 83605-TC; 83735-TC; 84100-TC; 84443-TC; 84484-TC; 85025-TC; 85730-TC; 87040-TC; 87081-TC; 87400; 90935-TC; 94002-TC; 94003-TC; 94760-TC; 99082-TC; A4606; A6253; A6402; A6403; A9563; C9113; J1644; J2060; J2270; J2543; J2704; J3370; J3490; J7030; J7050; J7060; Z7610

== ENCOUNTER 2017-05-11 10:13 | Inpatient (IN) | payer MEDICAID, MEDICARE ==
[2017-05-11] VITALS (9 sets, daily range): BP systolic 101–135; BP diastolic 39–66
[~2017-05-11] VITALS: Ht 165.1 cm; Wt 88.9 kg
[~2017-05-11 10:13] MED LIST changes: -ASPI81TA2 PO; +ATOR20TA GT; -ATOR20TA PO; +BUSP5TAB3 GT; -BUSP5TAB3 PO; +CALC-883 PO; -CLOP75TA2 GT; +CLOP75TA2 PO; -DARB150D IV; +FERR300L GT; -FERR300L PO; -GABA-532 PO; +HEPA50008 SQ; -HYDR-3326 GT; +HYDR-3326 PO; +INSU100I4 SQ; -IRON100V2 IV; +LORA1TAB PO; +OMEP40CA37 GT; -OMEP40CA37 PO; -ROPI0.5T GT; +ROPI0.5T PO; +SERT25TA PO; -VIT1TABL44 GT; +VIT1TABL44 PO; +ZINC220T GT
--- NOTE | 2017-05-11 10:15 | NUR ---
BIB [facility] FOR ABNORMAL LABS, PATIENT IS VERBALLY RESPONSIVE, DIFFICUTLY VOCALIZING NEEDS, PATIENT IS PLACED ON MONITOR, PATIENT RECEIVED DIALYSIS TODAY, PATIENT IS NOT COMPLAINING OF ANY SYMPTOMS WILL BE SEEN BY MD AT BEDSIDE,
[2017-05-11 11:01] LABS: CALCIUM, SERUM 8.1 mg/dL (8.5-10.1); CARBON DIOXIDE 28 mmol/L (21-32); CHLORIDE 102 mmol/L (98-107); CREATININE 1.8 mg/dL (0.6-1.3); GLUCOSE 93 mg/dL (74-106); POTASSIUM 5.1 mmol/L (3.5-5.1); SODIUM SERUM 136 mmol/L (136-145); UREA NITROGEN, BLOOD 16 mg/dL (7-18)
[2017-05-11 11:21] LABS: BASOPHILS % (AUTO) 0.7 % (0.0-2.0); EOSINOPHILS # (AUTO) 0.2 /CMM (0.0-0.7); EOSINOPHILS % (AUTO) 2.1 % (0.0-6.0); HEMATOCRIT 23 % (33-45); HEMOGLOBIN 7.1 g/dL (11.5-14.8); LYMPHOCYTES # (AUTO) 1.2 /CMM (0.8-4.8); LYMPHOCYTES % (AUTO) 16.6 % (20.0-44.0); MEAN CORPUSCULAR HEMOGLOBIN 28 PG (26.0-33.0); MEAN CORPUSCULAR HGB CONC 32 g/dl (31.0-36.0); MEAN CORPUSCULAR VOLUME 89 fL (82-100); MONOCYTES # (AUTO) 0.4 /CMM (0.1-1.30); MONOCYTES % (AUTO) 4.8 % (2.0-12.0); NEUTROPHILS # (AUTO) 5.5 /CMM (1.8-8.9); NEUTROPHILS % (AUTO) 75.8 % (43.0-81.0); PLATELET COUNT (AUTO) 213 /CMM (150-450); RDW COEFFICIENT OF VARIATION 19.1 (11.5-15.0); RED BLOOD CELL COUNT(AUTO) 2.54 MIL/uL (4.0-5.2); WHITE BLOOD COUNT (AUTO) 7.3 K/uL (4.3-11.0)
--- NOTE | 2017-05-11 11:57 | NUR ---
JAZMÍN ANDERSD, STEVO CHANEY NP INSERT OPERATOR
--- NOTE | 2017-05-11 11:57 | NUR ---
CALLED NURSING SUP. FOR TELE BED
[2017-05-11] MEDS ORDERED: HYDROCODONE/APAP 10/325MG 1 EA TABLET ONE (12:26)
[2017-05-11] MEDS ORDERED: HYDROCODONE/APAP 10/325MG 1 EA TABLET PO ONE (12:30)
[2017-05-11] MEDS ORDERED: TRAM50TA2 PO (12:51)
[2017-05-11] MEDS ORDERED: MELA3TAB PO (12:51)
[2017-05-11] MEDS ORDERED: ACET-868 PO (12:51)
[2017-05-11] MEDS ORDERED: NITR0.4T6 SL (12:51)
[2017-05-11] MEDS ORDERED: BLOO-668 IN (12:51)
[2017-05-11] MEDS ORDERED: GABA-532 PO (12:51)
[2017-05-11] MEDS ORDERED: FERR325T28 PO (12:51)
[2017-05-11] MEDS ORDERED: ATOR10TA PO (12:51)
[2017-05-11] MEDS ORDERED: IPRA3AMP IH ×2 (12:51)
[2017-05-11] MEDS ORDERED: AMIN30LI4 PO (12:51)
[2017-05-11] MEDS ORDERED: SENN-18 PO (12:51)
[2017-05-11] MEDS ORDERED: MAGN400O6 PO (12:51)
--- NOTE | 2017-05-11 12:54 | NUR ---
PT GOING TO TELE 120-2
[2017-05-11] MEDS ORDERED: ONDANSETRON HCL/PF 4 MG/2 ML VIAL IVP PRN (13:00)
[2017-05-11] MEDS ORDERED: MAG HYDROX/AL HYDROX/SIMETH 30 ML UDC PO PRN (13:00)
[2017-05-11] MEDS ORDERED: NITROGLYCERIN 0.4 MG/TAB BOTTLE SL PRN (13:00)
[2017-05-11] MEDS ORDERED: Medication Not On Formulary EA (Ipratropium/Albuterol Sulfate (Duoneb 2.5-0.5 Mg/3 Ml So IH PRN (13:00)
[2017-05-11] MEDS ORDERED: TRAMADOL HCL 50 MG TABLET PO PRN (13:00)
[2017-05-11] MEDS ORDERED: MAGNESIUM HYDROXIDE 30 ML UDC PO PRN ×2 (13:00)
[2017-05-11] MEDS ORDERED: Z GUARD REMEDY 2 OZ OINT TP PRN (13:00)
[2017-05-11] MEDS ORDERED: Medication Not On Formulary EA (Ipratropium/Albuterol Sulfate (Duoneb 2.5-0.5 Mg/3 Ml So IH SCH (13:30)
[2017-05-11] MEDS ORDERED: DEXTROSE 50%-WATER 50 ML DISP.SYRIN IV PRN (13:30)
[2017-05-11] MEDS ORDERED: ALBUTEROL FS 2.5 MG/0.5 ML VIAL.NEB NEB PRN (14:00)
[2017-05-11] MEDS ORDERED: IPRATROPIUM NEB FS 0.5 MG/2.5 ML AMPUL.NEB NEB PRN (14:00)
--- NOTE | 2017-05-11 14:00 | NUR ---
admission note received patient from ER at this time. trach patent, breathing even and unlabored with mech vent. denies pain. sr on tele monitor. a+ox4, mouths words, makes needs known. abd distended and hard, non-tender. skin warm and dry. rfa iv patent. no open wounds, scratched on L leg, sacral redness, bruising on abd only. photos in chart. discussde plan of care, oriented to unit, assessed and provided needs. provided education about dz process and medication. pt. nodded understanding and appreciation. call ight inr each.
[2017-05-11] MEDS: ISOSORBIDE DINITRATE (5MG) 5 MG TABLET PO SCH ×2 (14:01→18:02)
[2017-05-11] MEDS: ropiniROLE 0.5 MG TABLET PO SCH ×2 (14:01→18:03)
[2017-05-11] MEDS: GABAPENTIN 100 MG CAPSULE PO SCH ×2 (14:02→18:03)
[2017-05-11] MEDS ORDERED: BLOOD IV SET 1 EA INFUS.SET MC ONE (14:51)
[2017-05-11] MEDS ORDERED: IV NS 0.9% 250 ML IV ONE (14:51)
[2017-05-11] MEDS ORDERED: EPOETIN ALFA (10,000 UNIT) 10,000 UNIT/ML VIAL IV ONE (15:00)
--- NOTE | 2017-05-11 17:20 | NUR ---
refusing dvt pumps after education provided
[2017-05-11] MEDS: PROSOURCE / PROSTAT (PYXIS) 30 ML UDC PO SCH (18:00)
[2017-05-11] MEDS: DOCUSATE SODIUM 100 MG CAPSULE PO SCH (18:02)
[2017-05-11] MEDS: BLOOD SUGAR DIAGNOSTIC 1 EACH STRIP IN SCH ×2 (18:03→22:12)
[2017-05-11] MEDS: HYDROCODONE/APAP 5/325MG 1 EACH TABLET PO PRN (18:07)
--- NOTE | 2017-05-11 18:29 | NUR ---
additional assessment and intervention patient said she uses speaking valve at [facility], papito gave telephone order for speech eval for pmv. patient said she is itchy (since before blood transfusion). YARN CONDITIONER Papito Ramos gave telephone order for Benadryl q6 orn itching. pt. denies allergy to this medication. patient stated has occasional constipation but denied MOM at this time, patient consumed prune juice and colace.
[2017-05-11] MEDS: diphenhydrAMINE HCL 25 MG CAPSULE PO PRN ×2 (18:47→22:23)
[2017-05-11] MEDS: ALBUTEROL FS 2.5 MG/0.5 ML VIAL.NEB NEB SCH (18:56)
[2017-05-11] MEDS: IPRATROPIUM NEB FS 0.5 MG/2.5 ML AMPUL.NEB NEB SCH (18:56)
--- NOTE | 2017-05-11 19:38 | NUR ---
END OF SHIFT PATIENT TOLERATED TRANSFUSION, DENIES DISCOMFORT R/T TO TRANSFUSION. LOC AND BREATHING WITH MECH VENT STABLE. REPOSITIONED Q2, PROVIDED EXTENSIVE SKIN CARE. ADEQUATE PO INTAKE, NO ASPIRATION. EDUCATION PROVIEDE. CALL LIGHT INREACH
--- NOTE | 2017-05-11 19:54 | NUR ---
INITIAL RN NOTES PATIENT S/P BLD TRANSFUSION TOLERATED WELL,NO A/R NOTED, DENIES DISCOMFORT R/T TO TRANSFUSION. LOC AND BREATHING WITH MECH VENT STABLE. REPOSITIONED Q2, PROVIDED EXTENSIVE SKIN CARE. ADEQUATE PO INTAKE, NO ASPIRATION. EDUCATION PROVIEDE. CALL LIGHT INREACH
[2017-05-11] MEDS: SENNOSIDES 8.6 MG TABLET PO SCH (21:59)
[2017-05-11] MEDS: ATORVASTATIN 10 MG TABLET PO SCH (21:59)
[2017-05-11] MEDS ORDERED: Medication Not On Formulary EA (Melatonin 3 MG) PO SCH (22:00)
[2017-05-11] MEDS: ACETAMINOPHEN 325 MG TABLET PO PRN (22:22)
[2017-05-12] VITALS: BP_SYST 125; BP_SYST 140; BP_DIAS 50; BP_DIAS 98
[2017-05-12] MEDS: IPRATROPIUM NEB FS 0.5 MG/2.5 ML AMPUL.NEB NEB SCH ×4 (00:45→19:21)
[2017-05-12] MEDS: ALBUTEROL FS 2.5 MG/0.5 ML VIAL.NEB NEB SCH ×4 (00:45→19:21)
[2017-05-12 04:00] VITALS: BP 120/54
--- NOTE | 2017-05-12 06:13 | NUR ---
END OF SHIFT PATIENT S/P TRANSFUSION TOLERATED WELL, DENIES DISCOMFORT R/T TO TRANSFUSION. LOC AND BREATHING WITH MECH VENT STABLE. REPOSITIONED Q2, PROVIDED EXTENSIVE SKIN CARE. ADEQUATE PO INTAKE, NO ASPIRATION. EDUCATION PROVIDED. CALL LIGHT IN REACH.
[2017-05-12] MEDS: PANTOPRAZOLE 40 MG TABLET.DR PO SCH (06:40)
[2017-05-12] MEDS: BLOOD SUGAR DIAGNOSTIC 1 EACH STRIP IN SCH ×4 (06:40→22:29)
[2017-05-12 07:31] LABS: BASOPHILS % (AUTO) 0.7 % (0.0-2.0); EOSINOPHILS # (AUTO) 0.3 /CMM (0.0-0.7); EOSINOPHILS % (AUTO) 5.4 % (0.0-6.0); HEMATOCRIT 24 % (33-45); HEMOGLOBIN 7.6 g/dL (11.5-14.8); LYMPHOCYTES # (AUTO) 1.4 /CMM (0.8-4.8); LYMPHOCYTES % (AUTO) 21.9 % (20.0-44.0); MEAN CORPUSCULAR HEMOGLOBIN 28 PG (26.0-33.0); MEAN CORPUSCULAR HGB CONC 32 g/dl (31.0-36.0); MEAN CORPUSCULAR VOLUME 90 fL (82-100); MONOCYTES # (AUTO) 0.4 /CMM (0.1-1.30); MONOCYTES % (AUTO) 6.2 % (2.0-12.0); NEUTROPHILS # (AUTO) 4.1 /CMM (1.8-8.9); NEUTROPHILS % (AUTO) 65.8 % (43.0-81.0); PLATELET COUNT (AUTO) 182 /CMM (150-450); RDW COEFFICIENT OF VARIATION 19.4 (11.5-15.0); RED BLOOD CELL COUNT(AUTO) 2.69 MIL/uL (4.0-5.2); WHITE BLOOD COUNT (AUTO) 6.3 K/uL (4.3-11.0)
--- NOTE | 2017-05-12 07:47 | NUR ---
INITIAL DIRECT MARKETING MANAGER NOTES PT RECEIVED IN THE BED ALERT AND ORIENTED x3 DENIES DISCOMFORT AT THIS TIME HOWEVER REQUEST A SPEAKING VALVE , NURSING STAFF AWAITING ST CONSULT. PT IS CURRENTLY TOLERATING VENT SETTINGS WELL, VITAL SIGNS WITHIN NORMAL LIMITS. PT TURNED AND REPOSITIONED Q2, REPORTED THAT THE PT IS ABLE TO ADEQUATELY TAKE ALL MEDICATIONS AND FOOD PO WITHOUT ASPIRATION. EDUCATION PROVIDED. CALL LIGHT IN REACH BED LOCKED AND IN LOWEST POSITION NURSING STAFF WILL CONTINUE TO MONITOR THE PATIENTS PROGRESS.
[2017-05-12 08:00] VITALS: BP 137/61
[2017-05-12 08:04] LABS: CHOLESTEROL 114 mg/dL (<200); HDL CHOLESTEROL 56 mg/dL (40-60); LDL 39 mg/dL (0-99); THYROID STIMULATING HORMONE 0.914 uIU/mL (0.358-3.74); TRIGLYCERIDES 71 mg/dL (30-150)
[2017-05-12 08:07] LABS: ALANINE AMINOTRANSFERASE 16 U/L (12-78); ALBUMIN 2.9 g/dL (3.4-5.0); ALKALINE PHOSPHATASE 135 U/L (46-116); ASPARTATE AMINOTRANSFERASE 15 U/L (15-37); BILIRUBIN,TOTAL 0.5 mg/dL (0.2-1.0); CALCIUM, SERUM 7.9 mg/dL (8.5-10.1); CARBON DIOXIDE 29 mmol/L (21-32); CHLORIDE 101 mmol/L (98-107); GLUCOSE 82 mg/dL (74-106); MAGNESIUM 2.3 mg/dL (1.8-2.4); PHOSPHORUS 5.1 mg/dL (2.5-4.9); POTASSIUM 4.7 mmol/L (3.5-5.1); SODIUM SERUM 137 mmol/L (136-145); TOTAL PROTEIN, SERUM 7.2 g/dL (6.4-8.2); UREA NITROGEN, BLOOD 34 mg/dL (7-18)
[2017-05-12] MEDS: VIT B CMPLX 3/FA/VIT C/BIOTIN 1 TAB TABLET PO SCH (08:18)
[2017-05-12] MEDS: SERTRALINE HCL 25 MG TABLET PO SCH (08:18)
[2017-05-12] MEDS: CALCIUM CARB 250MG /VITAMIN D 1 UDTAB PO SCH (08:18)
[2017-05-12] MEDS: FERROUS SULFATE (325 MG) 325 MG/TAB TABLET PO SCH (08:18)
[2017-05-12] MEDS: ropiniROLE 0.5 MG TABLET PO SCH ×3 (08:18→17:03)
[2017-05-12] MEDS: GABAPENTIN 100 MG CAPSULE PO SCH ×3 (08:18→17:04)
[2017-05-12] MEDS: CLOPIDOGREL BISULFATE 75 MG TABLET PO SCH (08:24)
[2017-05-12] MEDS: ISOSORBIDE DINITRATE (5MG) 5 MG TABLET PO SCH ×3 (08:24→17:04)
[2017-05-12] MEDS: PROSOURCE / PROSTAT (PYXIS) 30 ML UDC PO SCH ×3 (08:25→17:03)
[2017-05-12] MEDS: CARVEDILOL 6.25 MG TABLET PO SCH (08:25)
[2017-05-12] MEDS: diphenhydrAMINE HCL 25 MG CAPSULE PO PRN ×2 (08:25→22:32)
[2017-05-12 11:35] LABS: HEMOGLOBIN 8.1 g/dL (11.5-14.8)
[2017-05-12] MEDS: ACETAMINOPHEN 325 MG TABLET PO PRN (11:57)
[2017-05-12 12:00] VITALS: BP 116/51
--- NOTE | 2017-05-12 12:32 | NUR ---
RN NOTE HD 1.3 LITERS REMOVED PATIENT STABLE COMPLAINS OF HEADACHE PRN TYLENOL 650 MG GIVEN PER PATIENTS REQUEST. NURSING STAFF WILL CONTINUE TO FOLLOW
--- NOTE | 2017-05-12 12:33 | NUR ---
RN NOTE STOOL COLLECTED AND SENT TO LAB FOR BLOOD CULTURE PER MD ORDERS ON 05/11/17
--- NOTE | 2017-05-12 13:55 | NUR ---
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 PT PLACED ON CONTACT PRECAUTIONS. ISOLATION CART LOCATED OUTSIDE OF THE PATIENTS ROOM.
[2017-05-12] MEDS: HYDROCODONE/APAP 10/325MG 1 EA TABLET PO PRN (14:27)
--- NOTE | 2017-05-12 15:17 | NUR ---
rn note PT complained of irritation at the trach site , trach care provided, PT VERBALIZED INCREASED COMFORT, and no longer experiencing trach discomfort. nursing staff will continue to monitor. no skin issues present
[2017-05-12 16:00] VITALS: BP 120/53
[2017-05-12] MEDS: DOCUSATE SODIUM 100 MG CAPSULE PO SCH (17:00)
--- NOTE | 2017-05-12 18:29 | NUR ---
RN CLOSING NOTE REPORT GIVEN TO PM SHIFT FOR IRENE. PT WAS ALERT AND ORIENTED THOUROUT SHIFT MADE NEEDS KNOWN. NO ISSUE OR CONCERNS , PT HD- 1.3 L REMOVED PATIENT COMPLAINED OF LEFT LEG CRAMPS AND RECIEVED PAIN MEDICATION WHICH HELPED ALLEVIATE ANY ISSUES. PT NEEDS ADDRESSED. RN WILL ENDORSE TO PM NURSE ALL SAFETY MEASURES IN PLACE ALL ORDERS CARRIED OUT.
--- NOTE | 2017-05-12 19:48 | NUR ---
SOFTWARE PERFORMANCE ENGINEER INITIAL NOTE PT IN BED. A/O X4 AND ABLE TO MAKE NEEDS KNOWN. ON ISOLATION FOR MRSA NARES. TELE- SINUS RHYTHM 70'S. IV RFA #18 FLUSHING WLL AND PATENT. L AV SHUNT CLEAN AND INTACT. VENT SETTINGS WELL TOLERATED AND SATING WELL. CALL LIGHT WITHIN EASY REACH AT ALL TIMES. WILL CONTINUE TO MONITOR.
[2017-05-12 20:00] VITALS: BP 127/68
[2017-05-12] MEDS: HYDROCODONE/APAP 5/325MG 1 EACH TABLET PO PRN (20:31)
[2017-05-12] MEDS: SENNOSIDES 8.6 MG TABLET PO SCH (22:29)
[2017-05-12] MEDS: ATORVASTATIN 10 MG TABLET PO SCH (22:29)
[2017-05-13] VITALS (15 sets, daily range): BP systolic 97–143; BP diastolic 38–63
[2017-05-13] MEDS: IPRATROPIUM NEB FS 0.5 MG/2.5 ML AMPUL.NEB NEB SCH ×4 (00:40→20:49)
[2017-05-13] MEDS: ALBUTEROL FS 2.5 MG/0.5 ML VIAL.NEB NEB SCH ×4 (00:40→20:49)
[2017-05-13] MEDS: LORAZEPAM 1 MG TABLET PO PRN ×2 (03:01→11:21)
[2017-05-13 06:32] LABS: CALCIUM, SERUM 7.9 mg/dL (8.5-10.1); CREATININE 3.5 mg/dL (0.6-1.3); GLUCOSE 124 mg/dL (74-106); UREA NITROGEN, BLOOD 43 mg/dL (7-18)
[2017-05-13] MEDS: PANTOPRAZOLE 40 MG TABLET.DR PO SCH (06:33)
[2017-05-13] MEDS: BLOOD SUGAR DIAGNOSTIC 1 EACH STRIP IN SCH ×4 (06:33→21:17)
[2017-05-13 06:34] LABS: BASOPHILS % (AUTO) 0.5 % (0.0-2.0); EOSINOPHILS # (AUTO) 0.3 /CMM (0.0-0.7); EOSINOPHILS % (AUTO) 5.1 % (0.0-6.0); HEMATOCRIT 25 % (33-45); HEMOGLOBIN 7.8 g/dL (11.5-14.8); LYMPHOCYTES # (AUTO) 1.7 /CMM (0.8-4.8); LYMPHOCYTES % (AUTO) 26.6 % (20.0-44.0); MEAN CORPUSCULAR HEMOGLOBIN 28 PG (26.0-33.0); MEAN CORPUSCULAR HGB CONC 31 g/dl (31.0-36.0); MEAN CORPUSCULAR VOLUME 89 fL (82-100); MONOCYTES # (AUTO) 0.5 /CMM (0.1-1.30); MONOCYTES % (AUTO) 7.9 % (2.0-12.0); NEUTROPHILS # (AUTO) 3.8 /CMM (1.8-8.9); NEUTROPHILS % (AUTO) 59.9 % (43.0-81.0); PLATELET COUNT (AUTO) 181 /CMM (150-450); RDW COEFFICIENT OF VARIATION 18.9 (11.5-15.0); RED BLOOD CELL COUNT(AUTO) 2.78 MIL/uL (4.0-5.2); WHITE BLOOD COUNT (AUTO) 6.4 K/uL (4.3-11.0)
--- NOTE | 2017-05-13 06:50 | NUR ---
LEAD SYSTEMS ANALYST CLOSING NOTE NO ACUTE DISTRESS NOTED. ISOLATION PRECAUTIONS OBSERVED. TELE- SINUS RHYTHM 80'S. VENT SETTINGS WELL TOLERATED. ALL NEEDS ATTENDED TO AND MET PROMPTLY. ALL DUE MEDS GIVEN ORDERED AND WELL TOLERATED. CALL LIGHT WITHIN REACH. WILL ENDORSE TO NEXT SHIFT FOR IRENE.
[2017-05-13 06:57] LABS: CARBON DIOXIDE 27 mmol/L (21-32); CHLORIDE 97 mmol/L (98-107); POTASSIUM 4.1 mmol/L (3.5-5.1); SODIUM SERUM 132 mmol/L (136-145)
--- NOTE | 2017-05-13 07:00 | NUR ---
RN NOTE RECEIVED PT ON BED, A/Ox4, TRACH / VENT DEPENDENT , TRACH CAR DONE ,RESPIRATION EVEN AND UNLABORED, TOLERATING VENT CURRENT VENT SETTING WELL. ON ISOLATION FOR MRSA NARES. TELE- SINUS RHYTHM 60'S . RFA #18 SITE CDI, L AV SHUNT CLEAN AND INTACT. CALL LIGHT WITHIN EASY REACH AT ALL TIMES. WILL CONTINUE TO MONITOR PT CLOSELY AND NOTIFY MD FOR ANY SIGNIFICANT CHANGES
[2017-05-13] MEDS: ropiniROLE 0.5 MG TABLET PO SCH ×3 (08:20→17:29)
[2017-05-13] MEDS: FERROUS SULFATE (325 MG) 325 MG/TAB TABLET PO SCH (08:20)
[2017-05-13] MEDS: CLOPIDOGREL BISULFATE 75 MG TABLET PO SCH (08:20)
[2017-05-13] MEDS: VIT B CMPLX 3/FA/VIT C/BIOTIN 1 TAB TABLET PO SCH (08:20)
[2017-05-13] MEDS: ISOSORBIDE DINITRATE (5MG) 5 MG TABLET PO SCH ×3 (08:20→17:30)
[2017-05-13] MEDS: GABAPENTIN 100 MG CAPSULE PO SCH ×3 (08:21→17:31)
[2017-05-13] MEDS: SERTRALINE HCL 25 MG TABLET PO SCH (08:21)
[2017-05-13] MEDS: CARVEDILOL 6.25 MG TABLET PO SCH (08:21)
[2017-05-13] MEDS: CALCIUM CARB 250MG /VITAMIN D 1 UDTAB PO SCH (08:22)
[2017-05-13] MEDS: PROSOURCE / PROSTAT (PYXIS) 30 ML UDC PO SCH ×3 (08:22→17:29)
[2017-05-13] MEDS: diphenhydrAMINE HCL 25 MG CAPSULE PO PRN (08:29)
[2017-05-13] MEDS: MUPIROCIN OINT 2% 22 GM TUBE SCH ×2 (10:31→21:18)
[2017-05-13] MEDS ORDERED: IV NS 0.9% 250 ML IV ONE (10:57)
[2017-05-13] MEDS ORDERED: BLOOD IV SET 1 EA INFUS.SET MC ONE (10:57)
--- NOTE | 2017-05-13 14:26 | NUR ---
RN NOTES BLOOD TRANSFUSION STATED , VSS STABLE , PT TOLRAING WELL, NO DISTRESS NOTED , CONTINUE TO MONITOR.
[2017-05-13] MEDS: ACETAMINOPHEN 325 MG TABLET PO PRN (14:34)
[2017-05-13] MEDS: DOCUSATE SODIUM 100 MG CAPSULE PO SCH (17:29)
--- NOTE | 2017-05-13 17:30 | NUR ---
RN NOTES ONE UNIT OF PRBC TRANSFUSED , PT TOLERATED WELL, NO REACTION NOTED .VSS STABLE .
--- NOTE | 2017-05-13 18:00 | NUR ---
RN NOTES PT RESTING COMFORTABLY IN BED. VSS STABLE, O2 SAT 100%. BREATHING EVEN AND UNLABORED. SIDERAILS UP X4, CALL LIGHT WITHIN EASY REACH. NO SIGNIFICANT CHANGES NOTED ON THIS SHIFT.
--- NOTE | 2017-05-13 19:19 | NUR ---
CDL DRIVER INITIAL NOTE RECEIVED PT IN BED. A/O X4 AND ABLE TO MAKE NEEDS KNOWN. [facility] WITH SETTINGS WELL TOLERATED. ISOLATION PRECAUTIONS OBSERVED. TELE- SINUS RHYTHM. IV RFA FLUSHING WELL AND PATENT. L AV SHUNT INTACT AND CLEAN. ALL SAFETY MEASURES IN PLACE. CALL WITHIN EASY REACH. WILL CONTINUE TO MONITOR.
[2017-05-13] MEDS: SENNOSIDES 8.6 MG TABLET PO SCH (21:17)
[2017-05-13] MEDS: ATORVASTATIN 10 MG TABLET PO SCH (21:18)
[2017-05-13] MEDS: HYDROCODONE/APAP 5/325MG 1 EACH TABLET PO PRN (21:18)
[2017-05-14] VITALS: BP 121/49
[2017-05-14] MEDS: IPRATROPIUM NEB FS 0.5 MG/2.5 ML AMPUL.NEB NEB SCH ×4 (02:29→19:56)
[2017-05-14] MEDS: ALBUTEROL FS 2.5 MG/0.5 ML VIAL.NEB NEB SCH ×4 (02:29→19:56)
[2017-05-14 04:00] VITALS: BP 138/68
[2017-05-14] MEDS: PANTOPRAZOLE 40 MG TABLET.DR PO SCH ×2 (06:39→08:11)
[2017-05-14] MEDS: BLOOD SUGAR DIAGNOSTIC 1 EACH STRIP IN SCH ×4 (06:39→17:41)
[2017-05-14] MEDS: ACETAMINOPHEN 325 MG TABLET PO PRN (06:40)
[2017-05-14 07:07] LABS: BASOPHILS % (AUTO) 0.5 % (0.0-2.0); EOSINOPHILS # (AUTO) 0.2 /CMM (0.0-0.7); HEMATOCRIT 26 % (33-45); HEMOGLOBIN 8.4 g/dL (11.5-14.8); LYMPHOCYTES # (AUTO) 1.4 /CMM (0.8-4.8); LYMPHOCYTES % (AUTO) 24.8 % (20.0-44.0); MEAN CORPUSCULAR HEMOGLOBIN 28 PG (26.0-33.0); MEAN CORPUSCULAR HGB CONC 32 g/dl (31.0-36.0); MEAN CORPUSCULAR VOLUME 88 fL (82-100); MONOCYTES # (AUTO) 0.4 /CMM (0.1-1.30); MONOCYTES % (AUTO) 6.6 % (2.0-12.0); NEUTROPHILS # (AUTO) 3.5 /CMM (1.8-8.9); NEUTROPHILS % (AUTO) 64.1 % (43.0-81.0); PLATELET COUNT (AUTO) 159 /CMM (150-450); RDW COEFFICIENT OF VARIATION 18.1 (11.5-15.0); RED BLOOD CELL COUNT(AUTO) 2.97 MIL/uL (4.0-5.2); WHITE BLOOD COUNT (AUTO) 5.5 K/uL (4.3-11.0)
--- NOTE | 2017-05-14 07:20 | NUR ---
RN INITIAL NOTES: Rec'd pt awake on bed, A/O x3, not in any distress. Pt on mech vent via trach, no SOB. Suctioned secretions. On telemonitor, SR. Has L AV shunt intact. Has RFA G18, SL, flushed, patent & intact w/ no signs of infection/ infiltration noted. Provided comfort & safety measures. Bed kept low & in locked position. Call light placed w/in reach. Isolation prec observed. Will continue to monitor.
[2017-05-14 07:32] LABS: CALCIUM, SERUM 7.7 mg/dL (8.5-10.1); CARBON DIOXIDE 26 mmol/L (21-32); CHLORIDE 95 mmol/L (98-107); CREATININE 4.4 mg/dL (0.6-1.3); GLUCOSE 84 mg/dL (74-106); MAGNESIUM 2.4 mg/dL (1.8-2.4); POTASSIUM 4.6 mmol/L (3.5-5.1); SODIUM SERUM 131 mmol/L (136-145); UREA NITROGEN, BLOOD 64 mg/dL (7-18)
[2017-05-14 08:00] VITALS: BP 145/43
[2017-05-14] MEDS: HYDROCODONE/APAP 10/325MG 1 EA TABLET PO PRN ×2 (08:10→13:51)
[2017-05-14] MEDS: VIT B CMPLX 3/FA/VIT C/BIOTIN 1 TAB TABLET PO SCH (08:11)
[2017-05-14] MEDS: ISOSORBIDE DINITRATE (5MG) 5 MG TABLET PO SCH ×3 (08:11→17:38)
[2017-05-14] MEDS: CARVEDILOL 6.25 MG TABLET PO SCH (08:11)
[2017-05-14] MEDS: FERROUS SULFATE (325 MG) 325 MG/TAB TABLET PO SCH (08:11)
[2017-05-14] MEDS: CLOPIDOGREL BISULFATE 75 MG TABLET PO SCH (08:11)
[2017-05-14] MEDS: SERTRALINE HCL 25 MG TABLET PO SCH (08:11)
[2017-05-14] MEDS: CALCIUM CARB 250MG /VITAMIN D 1 UDTAB PO SCH (08:11)
[2017-05-14] MEDS: ropiniROLE 0.5 MG TABLET PO SCH ×3 (08:11→17:37)
[2017-05-14] MEDS: GABAPENTIN 100 MG CAPSULE PO SCH ×3 (08:12→17:37)
[2017-05-14] MEDS: PROSOURCE / PROSTAT (PYXIS) 30 ML UDC PO SCH ×3 (08:12→17:38)
[2017-05-14] MEDS: MUPIROCIN OINT 2% 22 GM TUBE SCH (08:14)
[2017-05-14] MEDS: diphenhydrAMINE HCL 25 MG CAPSULE PO PRN ×2 (08:30→17:37)
--- NOTE | 2017-05-14 09:30 | NUR ---
RN NOTES: Pt seen & examined by Dr. Martin w/ orders & carried out.
[2017-05-14 12:00] VITALS: BP 149/88
[2017-05-14] MEDS: INSULIN REGULAR, HUMAN 100 UNIT/ML 3 ML VIAL SQ PRN ×2 (12:43→17:41)
[2017-05-14] MEDS: HYDROCODONE/APAP 5/325MG 1 EACH TABLET PO PRN (13:42)
[2017-05-14 16:00] VITALS: BP 111/56
[2017-05-14] MEDS: DOCUSATE SODIUM 100 MG CAPSULE PO SCH (17:37)
[2017-05-14 17:38] VITALS: BP 111/56
--- NOTE | 2017-05-14 19:14 | NUR ---
RN CLOSING NOTES: No acute changes noted w/in shift. Pt tolerated prescribed mech vent settings, saturating at 100%. Secretions suctioned. L AV shunt has clean, intact & dry dressing w/ no active bleeding noted. IV line access removed per request of MARIAA Mayfield from [facility], pressure dressing applied, no sign of infection/ bleeding noted. Kept well rested. Wound pictures taken. Report given to MARIAA Mayfield at [facility]. Call light placed w/in reach. Bed kept low & in locked position. Isolation prec observed. Needs attended. Endorsed to PM RN for IRENE & for DC.
--- NOTE | 2017-05-14 19:15 | NUR ---
LOCOMOTIVE MECHANIC APPRENTICE INITIAL NOTE RECEIVED REPORT FROM ABHIJEET LEROY. PT IN BED, A/A/O X4. CHRONIC VENT TRACH, TOLERATING CURRENT VENT SETTINGS. LUNG SOUNDS RHONCHI. BOWEL SOUNDS PRESENT. LEFT AV SHUNT INTACT. LAST HD 05/14 1 L OUT. PULSES PRESENT. PT DUE TO DISCHARGE BACK TO [facility] AWAITING AMBULANCE CROP INSURANCE CLAIMS ADJUSTER. WILL CONTINUE TO MONITOR.
--- NOTE | 2017-05-14 19:30 | NUR ---
SENIOR INFORMATICA DEVELOPER MED RESPONSE HERE FOR TRANSPORT. PT STABLE FOR DISCHARGE. DAY SHIFT RN GAVE REPORT TO WILLIAM AT [facility].
--- NOTE | 2017-05-14 19:45 | NUR ---
FARMWORKER BROODER FARM PER MED RESPONSE EMT. PT IS HAVING SOME ANXIETY. ATIVAN WILL BE ADMINISTERED. WILL ASK RT TO ASSESS. WILL CONTINUE TO MONITOR.
--- NOTE | 2017-05-14 19:50 | NUR ---
[facility]PONSE CALIBRATED VENT, CALIBRATION FAILED. THEY ARE REQUESTING A REPLACEMENT VENT. WHEN NEW [facility] ARRIVES FOR TRANSPORT, PT WILL BE DISCHARGED BACK TO [facility].
[2017-05-14] MEDS: LORAZEPAM 1 MG TABLET PO PRN (19:51)
--- NOTE | 2017-05-14 20:57 | NUR ---
MANAGER MATH NEW [facility] ARRIVED FOR TRANSPORT. PT REMAINS STABLE FOR TRANSPORT.
== END 2017-05-14 20:58 | DRG 194 ==
LOC: ER 10:19 → TELE1 13:22
PROVIDERS: ADMIT Nurse Practitioner Acute Care; ATTEND Nurse Practitioner Acute Care
PROC: 30233N1 Transfusion of Nonautologous Red Blood Cells into Peripheral Vein, Percutaneous Approach (ICD-10-PCS; principal; 2017-05-11)
PROC: 5A1945Z Respiratory Ventilation, 24-96 Consecutive Hours (ICD-10-PCS; principal; 2017-05-11)
PROC: 5A1D60Z (ICD-10-PCS; 2017-05-12)
DX: I13.2 Hypertensive heart and chronic kidney disease with heart failure and with stage 5 chronic kidney disease, or end stage renal disease (principal); Z99.11 Dependence on respirator [ventilator] status; J96.11 Chronic respiratory failure with hypoxia; Z93.0 Tracheostomy status; J44.9 Chronic obstructive pulmonary disease, unspecified; R13.10 Dysphagia, unspecified; E11.22 Type 2 diabetes mellitus with diabetic chronic kidney disease; N18.6 End stage renal disease; E03.9 Hypothyroidism, unspecified; Z99.2 Dependence on renal dialysis; I25.10 Atherosclerotic heart disease of native coronary artery without angina pectoris; E78.5 Hyperlipidemia, unspecified; I50.30 Unspecified diastolic (congestive) heart failure; D63.1 Anemia in chronic kidney disease; F32.9 Major depressive disorder, single episode, unspecified; K21.9 Gastro-esophageal reflux disease without esophagitis; M54.5 Low back pain; G89.29 Other chronic pain; G62.9 Polyneuropathy, unspecified
CPT/HCPCS: 31720; 36415; 71010-TC; 80048-TC; 80053-TC; 80061-TC; 82272-TC; 82962-TC; 83735-TC; 84100-TC; 84443-TC; 85025-TC; 85027-TC; 86850-TC; 86921-TC; 87081-TC; 90935-TC; 94002-TC; 94003-TC; A4606; A6403; J0885; J1815; J7050; P9016-BL; Q0163; Z7610

== ENCOUNTER 2017-06-15 09:54 | Emergency (ER) | payer MEDICARE, MEDICAID ==
[~2017-06-15] VITALS: Ht 154.9 cm; Wt 92.5 kg
[~2017-06-15 09:54] MED LIST changes: +ACET-868 PO; +AMIN30LI4 PO; +ATOR10TA PO; -ATOR20TA GT; +BLOO-668 IN; -BUSP5TAB3 GT; -FERR300L GT; +FERR325T28 PO; +GABA-532 PO; +IPRA3AMP IH; +MAGN400O6 PO; +MELA3TAB PO; +NITR0.4T6 SL; -OMEP40CA37 GT; +SENN-18 PO; +TRAM50TA2 PO; -ZINC220T GT
--- NOTE | 2017-06-15 09:54 | NUR ---
ZACHARY ZHAO FROM DIALYSIS CENTER C/O HEADACHE S/P DIALYSIS. PT ON MECH VENT TOLERATING WELL. NO SOB. PT HAS LULU AV SHUNT FOR DIALYSIS T TH SAT. PT STILL ABLE TO EAT NO GTUBE. PLACED ON MONITOR. AWAITING MD ORDER. GOWNED PT PLACED ON MONITOR.
--- NOTE | 2017-06-15 10:12 | NUR ---
DR GAUTAM AT BEDSIDE FOR EVAL
--- NOTE | 2017-06-15 10:18 | NUR ---
RECEIVED PT IN ER WITH A/C 14, VT 500, 40%,PEEP 5. SHILEY TRACH # 8. PT TOLERATES, NO RESPIRATORY DISTRESS NOTE. VENT ALARM WORKING AND AUDIBLE. RED OUTLET PLUGGED IN, AMBU BAG AT BEDSIDE.
[2017-06-15] MEDS ORDERED: MORPHINE SULFATE INJ 2 MG/ML DISP.SYRIN IV ONE (10:30)
[2017-06-15] MEDS ORDERED: ONDANSETRON HCL/PF 4 MG/2 ML VIAL IV ONE (10:30)
[2017-06-15] MEDS ORDERED: ONDANSETRON HCL/PF 4 MG/2 ML VIAL ONE (10:39)
[2017-06-15] MEDS ORDERED: MORPHINE SULFATE INJ 10 MG/ML DISP.SYRIN ONE (10:39)
--- NOTE | 2017-06-15 10:45 | NUR ---
VERBAL ORDER FROM DR KO TO GIVE MORPHINE AND ZOFRAN IM INSTEAD OF IV
--- NOTE | 2017-06-15 11:26 | NUR ---
PT TAKEN TO CT VIA GURCHAU WITH RT
--- NOTE | 2017-06-15 12:28 | NUR ---
Patient discharged to home in stable condition. Written and verbal after care instructions given. Patient verbalizes understanding of instruction.
--- NOTE | 2017-06-15 12:45 | NUR ---
[facility] ETA [phone] FOR RT
[2017-06-15 12:57] VITALS: BP 154/60
== END 2017-06-15 14:28 | disposition home or self-care (01) ==
LOC: ER 09:56
DX: R51 Headache (principal); I12.0 Hypertensive chronic kidney disease with stage 5 chronic kidney disease or end stage renal disease; N18.6 End stage renal disease; E11.9 Type 2 diabetes mellitus without complications; E78.00 Pure hypercholesterolemia, unspecified; J90 Pleural effusion, not elsewhere classified; Z79.4 Long term (current) use of insulin; Z99.2 Dependence on renal dialysis
CPT/HCPCS: 70450; 82962; 96372 ×2; 99284; A4606; J2270; J2405; Z7610

== ENCOUNTER 2017-11-21 08:53 | Inpatient (IN) | payer MEDICAID, MEDICARE ==
[~2017-11-21] VITALS: Ht 165.1 cm; Wt 93.4 kg
[~2017-11-21 08:53] MED LIST changes: +CLOP75TA15 PO; -CLOP75TA2 PO; +DOCU-141 PO; -DOCU-25 PO; +NITR0.4T48 SL; -NITR0.4T6 SL
--- NOTE | 2017-11-21 09:00 | NUR ---
BBPA FROM [facility]: SOB, LOW BLOOD PRESSURE 1.5HR INTO HEMODIALYSIS. PLACED ON MONITOR AWAITING MD ORDER
--- NOTE | 2017-11-21 09:10 | NUR ---
STEPHANIE #20 IV ACCESS. BLOOD SAMPLE COLLECTED SENT TO LAB
[2017-11-21 09:25] VITALS: BP 108/52
--- NOTE | 2017-11-21 09:28 | NUR ---
PT REC'D IN ER BED 7. PT PLACED ON VENT WITH SETTINGS FROM FACILITY. PT IS A TRACH, VENT DEPENDENT PT. AWAKE AND ALERT. SX MOD. AMT OF THICK YELLOW SECRETIONS. VENT PLUGGED INTO RED OUTLET. AMBU BAG AT [facility]. VENT ALARMS SET AND AUDIBLE PER POLICY. Addendum: 11/21/17 at 0932 by MYRIAM HANEY RT Amended: Links added.
[2017-11-21] MEDS ORDERED: IV NS 0.9% 1,000 ML BAG IV ONE (09:30)
[2017-11-21 09:48] LABS: BASOPHILS # (AUTO) 0.3 /CMM (0.0-0.2); BASOPHILS % (AUTO) 1.9 % (0.0-2.0); EOSINOPHILS % (AUTO) 0.1 % (0.0-6.0); HEMATOCRIT 34 % (33-45); HEMOGLOBIN 11.1 g/dL (11.5-14.8); LYMPHOCYTES # (AUTO) 0.7 /CMM (0.8-4.8); MEAN CORPUSCULAR HEMOGLOBIN 29 PG (26.0-33.0); MEAN CORPUSCULAR HGB CONC 32 g/dl (31.0-36.0); MEAN CORPUSCULAR VOLUME 90 fL (82-100); MONOCYTES # (AUTO) 0.6 /CMM (0.1-1.30); MONOCYTES % (AUTO) 4.7 % (2.0-12.0); NEUTROPHILS # (AUTO) 11.8 /CMM (1.8-8.9); NEUTROPHILS % (AUTO) 88.3 % (43.0-81.0); PLATELET COUNT (AUTO) 131 /CMM (150-450); RDW COEFFICIENT OF VARIATION 15.3 (11.5-15.0); RED BLOOD CELL COUNT(AUTO) 3.83 MIL/uL (4.0-5.2); WHITE BLOOD COUNT (AUTO) 13.4 K/uL (4.3-11.0)
[2017-11-21 10:03] LABS: CALCIUM, SERUM 8.7 mg/dL (8.5-10.1); CARBON DIOXIDE 29 mmol/L (21-32); CHLORIDE 96 mmol/L (98-107); CREATININE 3.8 mg/dL (0.6-1.3); GLUCOSE 139 mg/dL (74-106); SODIUM SERUM 134 mmol/L (136-145); UREA NITROGEN, BLOOD 45 mg/dL (7-18)
[2017-11-21 10:09] LABS: ALANINE AMINOTRANSFERASE 30 U/L (12-78); ALBUMIN 2.8 g/dL (3.4-5.0); ALKALINE PHOSPHATASE 86 U/L (46-116); ASPARTATE AMINOTRANSFERASE 27 U/L (15-37); BILIRUBIN,DIRECT 0.8 mg/dL (0.0-0.2); BILIRUBIN,TOTAL 1.3 mg/dL (0.2-1.0); TOTAL PROTEIN, SERUM 8.4 g/dL (6.4-8.2)
[2017-11-21 10:10] LABS: TROPONIN I 0.316 ng/mL (0.00-0.056)
[2017-11-21] MEDS ORDERED: IBUP-1955 PO (10:14)
[2017-11-21] MEDS ORDERED: HYDR-4076 PO (10:14)
[2017-11-21] MEDS ORDERED: AMLO5TAB2 PO (10:14)
[2017-11-21] MEDS ORDERED: BENZ1LOZ12 MM (10:14)
[2017-11-21] MEDS ORDERED: DIPH25CA6 PO (10:14)
[2017-11-21 10:15] LABS: INR 1.1 (0.87-1.13); PROTHROMBIN TIME 11.4 SECS (9.5-12.7)
[2017-11-21 10:49] LABS: APPEARANCE,URINE Cloudy (CLEAR); BILIRUBIN,URINE SMALL (NEGATIVE); BLOOD, URINE Small Ery/uL (NEGATIVE); COLOR,URINE Yellow (YELLOW); KETONES,URINE Trace (NEGATIVE); LEUKOCYTE ESTERASE ,URINE Moderate (NEGATIVE); NITRITE, URINE Negative (NEGATIVE); PROTEIN,URINE >=300 mg/dl (NEGATIVE); UGLUCOSE Negative (NEGATIVE); UROBILINOGEN,URINE 0.2 EU/dL (0.2)
--- NOTE | 2017-11-21 10:50 | NUR ---
[facility] PAGED [phone] MORELAND
[2017-11-21 10:58] VITALS: BP 124/58
[2017-11-21 11:01] LABS: BACTERIA,URINE Few /HPF (None Seen)
[2017-11-21] MEDS ORDERED: CEFTRIAXONE 1GM BAG (ER ONLY) 50 ML IV ONE (11:12)
--- NOTE | 2017-11-21 11:28 | NUR ---
PT HAS A SHILEY #8 XL TRACH. TRACH MIDLINE. CUFF INFLATED. NO RESP. DISTRESS NOTED ON VENT. Addendum: 11/21/17 at 1129 by MYRIAM HANEY RT Amended: Links added.
[2017-11-21] MEDS ORDERED: CEFTRIAXONE 1GM BAG (ER ONLY) 1 GM/50 ML PIGGYBACK IV ONE (11:30)
[2017-11-21] MEDS ORDERED: VANCOMYCIN 1 GM in IV D5W 250 ML IV ONE (11:30)
--- NOTE | 2017-11-21 11:41 | NUR ---
TELE 119-2
--- NOTE | 2017-11-21 11:58 | NUR ---
GAVE REPORT TO SOON CONTINUOUS TOWEL ROLLER ROOM 119 DR SEAY ADMITTING TRANSFER VIA CLS PROTOCOL
[2017-11-21 13:30] VITALS: BP 126/55
--- NOTE | 2017-11-21 13:30 | NUR ---
RN NOTE PT ARRIVED ON BED, AOX2, ON MECH VENT, NO SOB, ON TELEMONITOR SR 80S, LULU AV SHUNT, R HANG 20 G, CO PAIN IN BACK/BOTTOM. PT CLAIMS THAT SHE WAS EATING BY MOUTH AT THE FACILITY. HAD A LUNCH BOX AT BED SIDE WITH SANDWICH AND JUICE. WILL FOLLOW UP WITH . SAFETY MEASURES IMPLEMENTED, CALL LIGHT WITHIN REACH. WILL MONITOR PT.
[2017-11-21 13:53] LABS: LYMPHOCYTES % (MANUAL) 11 % (16-48); MONOCYTES % (MANUAL) 1 % (0-11.0); NEUTROPHILS % (MANUAL) 88 (42-76)
[2017-11-21] MEDS ORDERED: ZOLPIDEM TARTRATE 5 MG TABLET PO PRN (15:30)
[2017-11-21] MEDS ORDERED: Medication Not On Formulary EA (Ipratropium/Albuterol Sulfate (Duoneb 2.5-0.5 Mg/3 Ml So IH PRN (15:30)
[2017-11-21] MEDS ORDERED: diphenhydrAMINE HCL 25 MG CAPSULE PO PRN (15:30)
[2017-11-21] MEDS ORDERED: ONDANSETRON HCL/PF 4 MG/2 ML VIAL IVP PRN (15:30)
[2017-11-21] MEDS ORDERED: CEFTRIAXONE 1 G VIAL IM SCH (15:30)
[2017-11-21] MEDS ORDERED: NITROGLYCERIN 0.4 MG/TAB BOTTLE SL PRN (15:30)
[2017-11-21] MEDS ORDERED: ACETAMINOPHEN 325 MG TABLET PO PRN (15:30)
[2017-11-21] MEDS ORDERED: IBUPROFEN 600 MG TABLET PO PRN (15:30)
[2017-11-21 16:00] VITALS: BP 120/55
[2017-11-21] MEDS: ropiniROLE 0.5 MG TABLET PO SCH (17:00)
[2017-11-21] MEDS: DOCUSATE SODIUM 100 MG CAPSULE PO SCH (17:00)
[2017-11-21] MEDS: GABAPENTIN 100 MG CAPSULE PO SCH (17:00)
--- NOTE | 2017-11-21 17:12 | NUR ---
RT pt on vent, nurse wants to place a pmv, pt complaining of shortness of breath prior Sp02 99% Hr 94 rr 22 No signs of distress
[2017-11-21] MEDS: HYDROCODONE/APAP 5/325MG 1 EACH TABLET PO PRN (17:44)
[2017-11-21] MEDS ORDERED: ALBUTEROL FS 2.5 MG/0.5 ML VIAL.NEB NEB PRN (18:00)
[2017-11-21] MEDS ORDERED: IV D5/0.45 NACL 1,000 ML IV ONE (18:30)
[2017-11-21] MEDS ORDERED: ACETAMINOPHEN 650 MG/SUPP.RECT RC PRN (18:30)
[2017-11-21] MEDS: NITROGLYCERIN 30 GM TUBE TP SCH (18:42)
[2017-11-21] MEDS ORDERED: IPRATROPIUM NEB FS 0.5 MG/2.5 ML AMPUL.NEB NEB PRN (19:30)
[2017-11-21] MEDS ORDERED: Medication Not On Formulary EA (Ipratropium/Albuterol Sulfate (Duoneb 2.5-0.5 Mg/3 Ml So IH SCH (19:30)
[2017-11-21 20:00] VITALS: BP 105/56
[2017-11-21] MEDS: ALBUTEROL FS 2.5 MG/0.5 ML VIAL.NEB NEB SCH (20:02)
[2017-11-21] MEDS: IPRATROPIUM NEB FS 0.5 MG/2.5 ML AMPUL.NEB NEB SCH (20:03)
--- NOTE | 2017-11-21 20:06 | NUR ---
Received pt on vent support AC 18,600,35,+5, pt stable on current settings no distress noted at this time, WILL CONTINUE MONITORING PT PER MDS ORDERS. Addendum: 11/21/17 at 2008 by TAY VIEYRA RT Amended: Links added.
[2017-11-21] MEDS: TRAMADOL HCL 50 MG TABLET PO SCH (21:00)
[2017-11-21] MEDS: CARVEDILOL 6.25 MG TABLET PO SCH (21:00)
[2017-11-21] MEDS ORDERED: Medication Not On Formulary EA (Melatonin 3 MG) PO SCH (22:00)
[2017-11-21] MEDS: SENNOSIDES 8.6 MG TABLET PO SCH (22:00)
[2017-11-21] MEDS: ATORVASTATIN 10 MG TABLET PO SCH (22:00)
[2017-11-22] VITALS (7 sets, daily range): BP systolic 100–110; BP diastolic 32–58
[2017-11-22] MEDS: ALBUTEROL FS 2.5 MG/0.5 ML VIAL.NEB NEB SCH ×4 (01:39→20:11)
[2017-11-22] MEDS: IPRATROPIUM NEB FS 0.5 MG/2.5 ML AMPUL.NEB NEB SCH ×4 (01:39→20:11)
--- NOTE | 2017-11-22 04:53 | NUR ---
PATIENT RESTING COMFORTABLY, NO RESPIRATORY DISTRESS NOTED. NO C/O CHEST PAIN. INFORMED ACCOUNTS RECEIVABLE ANALYST ILENE REGARDING CRITICAL TROPONIN LEVEL WITH ORDERS FOR TROPONIN LEVEL AT 0930. NOTED AND CARRIED OUT.
--- NOTE | 2017-11-22 07:50 | NUR ---
RADAR SCIENTIST CLOSING NOTES PATIENT RESTING COMFORTABLY, NO C/O PAIN OR DISCOMFORT. NO RESPIRATORY DISTRESS NOTED. TOLERATING VENT SETTINGS. SR ON TELE MONITOR. ALL NEEDS ANTICIPATED AND MET. ISOLATION PRECAUTIONS OBSERVED. KEPT CLEAN AND DRY. TURNED AND REPOSITIONED Q2 AND PRN. SIDE RAILS UP AND LOCKED. BED KEPT AT LOWEST POSITION. CALL LIGHT KEPT WITHIN EASY REACH. CONTINUITY OF CARE ENDORSED TO AM NURSE.
[2017-11-22] MEDS: CARVEDILOL 6.25 MG TABLET PO SCH ×2 (08:43→21:00)
[2017-11-22] MEDS: ATORVASTATIN 40 MG TABLET PO SCH (08:43)
[2017-11-22] MEDS: GABAPENTIN 100 MG CAPSULE PO SCH ×3 (08:44→17:00)
[2017-11-22] MEDS: TRAMADOL HCL 50 MG TABLET PO SCH ×2 (08:44→21:00)
[2017-11-22] MEDS: VIT B CMPLX 3/FA/VIT C/BIOTIN 1 TAB TABLET PO SCH (08:44)
[2017-11-22] MEDS: ropiniROLE 0.5 MG TABLET PO SCH ×3 (08:44→17:00)
[2017-11-22] MEDS: AMLODIPINE BESYLATE 5 MG TABLET PO SCH (08:44)
[2017-11-22] MEDS: CLOPIDOGREL BISULFATE 75 MG TABLET PO SCH (08:44)
[2017-11-22] MEDS: SERTRALINE HCL 25 MG TABLET PO SCH (08:44)
[2017-11-22] MEDS: MORPHINE SULFATE INJ 2 MG/ML DISP.SYRIN IV PRN ×2 (08:45→16:14)
[2017-11-22] MEDS: NITROGLYCERIN 30 GM TUBE TP SCH ×3 (08:57→21:00)
[2017-11-22 10:06] LABS: BASOPHILS % (AUTO) 0.1 % (0.0-2.0); EOSINOPHILS # (AUTO) 0.1 /CMM (0.0-0.7); HEMATOCRIT 29 % (33-45); HEMOGLOBIN 9.8 g/dL (11.5-14.8); LYMPHOCYTES # (AUTO) 0.6 /CMM (0.8-4.8); LYMPHOCYTES % (AUTO) 6.6 % (20.0-44.0); MEAN CORPUSCULAR HEMOGLOBIN 30 PG (26.0-33.0); MEAN CORPUSCULAR HGB CONC 33 g/dl (31.0-36.0); MEAN CORPUSCULAR VOLUME 90 fL (82-100); MONOCYTES # (AUTO) 0.5 /CMM (0.1-1.30); MONOCYTES % (AUTO) 5.5 % (2.0-12.0); NEUTROPHILS # (AUTO) 7.7 /CMM (1.8-8.9); NEUTROPHILS % (AUTO) 86.8 % (43.0-81.0); PLATELET COUNT (AUTO) 120 /CMM (150-450); RDW COEFFICIENT OF VARIATION 15.4 (11.5-15.0); RED BLOOD CELL COUNT(AUTO) 3.25 MIL/uL (4.0-5.2); WHITE BLOOD COUNT (AUTO) 8.9 K/uL (4.3-11.0)
[2017-11-22 10:26] LABS: CHOLESTEROL 104 mg/dL (<200); HDL CHOLESTEROL 19 mg/dL (40-60); LDL 43 mg/dL (0-99); TRIGLYCERIDES 142 mg/dL (30-150)
[2017-11-22 10:29] LABS: ALANINE AMINOTRANSFERASE 47 U/L (12-78); ALBUMIN 2.4 g/dL (3.4-5.0); ALKALINE PHOSPHATASE 77 U/L (46-116); ASPARTATE AMINOTRANSFERASE 56 U/L (15-37); BILIRUBIN,TOTAL 0.9 mg/dL (0.2-1.0); CALCIUM, SERUM 8.1 mg/dL (8.5-10.1); CARBON DIOXIDE 24 mmol/L (21-32); CHLORIDE 97 mmol/L (98-107); CREATININE 5.1 mg/dL (0.6-1.3); GLUCOSE 329 mg/dL (74-106); PHOSPHORUS 3.4 mg/dL (2.5-4.9); POTASSIUM 4.1 mmol/L (3.5-5.1); SODIUM SERUM 135 mmol/L (136-145); TOTAL PROTEIN, SERUM 7.2 g/dL (6.4-8.2); UREA NITROGEN, BLOOD 69 mg/dL (7-18)
[2017-11-22] MEDS: LORAZEPAM 1 MG TABLET PO PRN ×2 (10:29→17:06)
[2017-11-22] MEDS ORDERED: Z GUARD REMEDY 2 OZ OINT TP PRN (14:00)
[2017-11-22] MEDS: BLOOD SUGAR DIAGNOSTIC 1 EACH STRIP IN SCH (14:02)
[2017-11-22] MEDS: CEFTRIAXONE 1 G in IV D5W 50 ML IV SCH (14:03)
[2017-11-22] MEDS: Z GUARD REMEDY 2 OZ OINT TP SCH (14:04)
[2017-11-22] MEDS: ALBUMIN 25% 25 GM in PREMIX 1 EA IV PRN (16:09)
[2017-11-22] MEDS: DOCUSATE SODIUM 100 MG CAPSULE PO SCH (17:00)
[2017-11-22] MEDS: HYDROCODONE/APAP 5/325MG 1 EACH TABLET PO PRN (17:06)
[2017-11-22] MEDS ORDERED: IV D5/0.45 NACL 1,000 ML IV ONE (19:00)
--- NOTE | 2017-11-22 19:30 | NUR ---
TELE/RN NOTES: RECEIVED PT. IN BED A/O X 4 ABLE TO MOUTH WORDS OUT. NOT IN ANY RESPIRATORY DISTRESS. DENIES ANY PAIN OR SOB AT THIS TIME. ON TELE MONITOR W/ SR 74'S W/ PAC'S NOTED. TOLERATING VENT SETTING WELL. PT. IS NPO STATUS. ON D5 1/2 NS @ 40 CC/HR VIA RH W/ NO S/S OF INFECTION/INFILTRATION NOTED. HAS AV SHUNT ON LULU . HAD HD ON 11/22/17 W/ 3.5 L OUT. CALL LIGHT W/REACH ALL NEEDS MEET AND ATTENDED. WILL CONTINUE TO MONITOR.
--- NOTE | 2017-11-22 20:11 | NUR ---
PT REC'D ON [facility] VENT ON NOTED SETTINGS CHARTED. PT IS COMFORTABLE AND NO RESPIRATORY DISTRESS NOTED. VENT PLUGGED INTO RED OUTLET, AMBU BAG BEDSIDE, ALARMS ARE SET AND AUDIBLE PER POLICY. WILL CONTINUE TO MONITOR. Addendum: 11/23/17 at 0539 by VIKAS CORDOVA RT Amended: Links added.
[2017-11-22] MEDS: SENNOSIDES 8.6 MG TABLET PO SCH (21:35)
[2017-11-22] MEDS: ATORVASTATIN 10 MG TABLET PO SCH (21:37)
--- NOTE | 2017-11-22 23:55 | NUR ---
TELE/RN NOTED: TEMP 100.2. TYLENOL SUPP. GIVEN. PER PT. SHE ALWAYS GETS TEMP. AFTER DIALYSIS. COOLING MEASURES RENDERED. WILL CONTINUE TO MONITOR.
[2017-11-23] VITALS (8 sets, daily range): BP systolic 98–121; BP diastolic 40–63
[2017-11-23] MEDS: ALBUTEROL FS 2.5 MG/0.5 ML VIAL.NEB NEB SCH ×4 (02:02→20:17)
[2017-11-23] MEDS: IPRATROPIUM NEB FS 0.5 MG/2.5 ML AMPUL.NEB NEB SCH ×4 (02:02→20:17)
[2017-11-23] MEDS ORDERED: MORPHINE SULFATE INJ 2 MG/ML DISP.SYRIN IM ONE (06:00)
--- NOTE | 2017-11-23 07:14 | NUR ---
TELE/RN NOTES: PT. IN BED AWAKE W/ VENT SETTING TOLERATING WELL. REPORT GIVEN TO NEXT SHIFT NURSE TO F/U REGARDING PICC LINE INSERTION AND CONTINUE OF CARE.
--- NOTE | 2017-11-23 07:30 | NUR ---
RN NOTES RECEIVED PATIENT IN BED ON [facility] VENT WITH BREATHING NORMAL, EVEN AND UNLABORED. NO SOB NOTED. NO ACUTE DISTRESS NOTED. VENT SETTING REVIEWED AND VERIFIED. TOLERATED WELL. TELE MONITOR REVEALS SR, HR=80. AFEBRILE. KEPT CLEAN, DRY AND COMFORTABLE ALL NEEDS ATTENDED. SAFETY MEASURE OBSERVED. CALL LIGHT WITH IN REACH. WILL CONT TO MONITOR.
[2017-11-23 08:46] LABS: BASOPHILS % (AUTO) 0.1 % (0.0-2.0); EOSINOPHILS # (AUTO) 0.2 /CMM (0.0-0.7); EOSINOPHILS % (AUTO) 1.9 % (0.0-6.0); HEMATOCRIT 31 % (33-45); HEMOGLOBIN 10.3 g/dL (11.5-14.8); LYMPHOCYTES # (AUTO) 0.7 /CMM (0.8-4.8); LYMPHOCYTES % (AUTO) 7.3 % (20.0-44.0); MEAN CORPUSCULAR HEMOGLOBIN 30 PG (26.0-33.0); MEAN CORPUSCULAR HGB CONC 34 g/dl (31.0-36.0); MEAN CORPUSCULAR VOLUME 89 fL (82-100); MONOCYTES # (AUTO) 0.5 /CMM (0.1-1.30); MONOCYTES % (AUTO) 5.1 % (2.0-12.0); NEUTROPHILS # (AUTO) 7.6 /CMM (1.8-8.9); NEUTROPHILS % (AUTO) 85.6 % (43.0-81.0); PLATELET COUNT (AUTO) 132 /CMM (150-450); RDW COEFFICIENT OF VARIATION 15.2 (11.5-15.0); RED BLOOD CELL COUNT(AUTO) 3.43 MIL/uL (4.0-5.2)
[2017-11-23 08:53] LABS: ALANINE AMINOTRANSFERASE 66 U/L (12-78); ALBUMIN 2.9 g/dL (3.4-5.0); ALKALINE PHOSPHATASE 89 U/L (46-116); ASPARTATE AMINOTRANSFERASE 70 U/L (15-37); CARBON DIOXIDE 26 mmol/L (21-32); CHLORIDE 94 mmol/L (98-107); CREATININE 4.7 mg/dL (0.6-1.3); GLUCOSE 105 mg/dL (74-106); MAGNESIUM 2.2 mg/dL (1.8-2.4); PHOSPHORUS 3.5 mg/dL (2.5-4.9); POTASSIUM 4.1 mmol/L (3.5-5.1); SODIUM SERUM 133 mmol/L (136-145); UREA NITROGEN, BLOOD 64 mg/dL (7-18)
[2017-11-23 08:59] LABS: TROPONIN I 0.877 ng/mL (0.00-0.056)
[2017-11-23] MEDS: GABAPENTIN 100 MG CAPSULE PO SCH ×3 (09:00→17:00)
[2017-11-23] MEDS: SERTRALINE HCL 25 MG TABLET PO SCH (09:00)
[2017-11-23] MEDS: AMLODIPINE BESYLATE 5 MG TABLET PO SCH (09:00)
[2017-11-23] MEDS: VIT B CMPLX 3/FA/VIT C/BIOTIN 1 TAB TABLET PO SCH (09:00)
[2017-11-23] MEDS: TRAMADOL HCL 50 MG TABLET PO SCH ×2 (09:00→21:00)
[2017-11-23] MEDS: ATORVASTATIN 40 MG TABLET PO SCH (09:00)
[2017-11-23] MEDS: CLOPIDOGREL BISULFATE 75 MG TABLET PO SCH (09:00)
[2017-11-23] MEDS: CARVEDILOL 6.25 MG TABLET PO SCH ×2 (09:00→21:00)
[2017-11-23] MEDS: ropiniROLE 0.5 MG TABLET PO SCH ×3 (09:00→17:00)
[2017-11-23] MEDS: Z GUARD REMEDY 2 OZ OINT TP SCH ×2 (09:57)
[2017-11-23] MEDS: NITROGLYCERIN 30 GM TUBE TP SCH ×2 (09:58→21:32)
[2017-11-23] MEDS: BLOOD SUGAR DIAGNOSTIC 1 EACH STRIP IN SCH (12:35)
[2017-11-23] MEDS: CEFTRIAXONE 1 G in IV D5W 50 ML IV SCH (13:31)
[2017-11-23] MEDS: MORPHINE SULFATE INJ 2 MG/ML DISP.SYRIN IV PRN ×2 (13:38→17:44)
[2017-11-23] MEDS: DOCUSATE SODIUM 100 MG CAPSULE PO SCH (17:00)
--- NOTE | 2017-11-23 17:29 | NUR ---
Awake and alert pt on mechanical vent, tolerating current vent settings well throughout the shift. No changes made. Pt trach is secure. Vent is plugged into a red outlet, alarms are set and audible, and BVM is at bedside. Addendum: 11/23/17 at 1731 by JACINTO MCGOVERN RT Amended: Links added.
[2017-11-23] MEDS: LORAZEPAM INJ 2 MG/ML VIAL IV PRN (18:16)
--- NOTE | 2017-11-23 20:00 | NUR ---
RN NOTES PATIENT IN BED ON [facility] VENT WITH BREATHING NORMAL, EVEN AND UNLABORED. NO SOB NOTED. NO ACUTE DISTRESS NOTED. VENT SETTING REVIEWED AND VERIFIED. TOLERATED WELL. TELE MONITOR REVEALS SR, HR=82. AFEBRILE. KEPT CLEAN, DRY AND COMFORTABLE ALL NEEDS ATTENDED. SAFETY MEASURE OBSERVED. CALL LIGHT WITH IN REACH. WILL CONT TO MONITOR.
[2017-11-23] MEDS: SENNOSIDES 8.6 MG TABLET PO SCH (21:33)
[2017-11-23] MEDS: ATORVASTATIN 10 MG TABLET PO SCH (21:33)
[2017-11-24] VITALS (7 sets, daily range): BP systolic 89–148; BP diastolic 48–64
[2017-11-24] MEDS: IPRATROPIUM NEB FS 0.5 MG/2.5 ML AMPUL.NEB NEB SCH ×4 (02:17→20:28)
[2017-11-24] MEDS: ALBUTEROL FS 2.5 MG/0.5 ML VIAL.NEB NEB SCH ×4 (02:17→20:28)
--- NOTE | 2017-11-24 05:59 | NUR ---
RT PT RECEIVED ON [facility] VENT WITH NOTED SETTING. VENT PLUGGED IN TO RED OUTLET. ALARMS SET AND AUDIBLE. AMBU BAG AT [facility]. NO SOB OR RESP DISTRESS NOTED ON SHIFT. HHN TX GIVEN ORDERED WITH NO ADVERSE REACTIONS. Addendum: 11/24/17 at 0559 by PJ JORGE RT Amended: Links added.
[2017-11-24] MEDS: MORPHINE SULFATE INJ 2 MG/ML DISP.SYRIN IV PRN (07:09)
--- NOTE | 2017-11-24 07:13 | NUR ---
RN NOTES PATIENT ENDORSED TO NEXT SHIFT IN STABLE CONDITION FOR CONTINUITY OF CARE. NO SIGNIFICANT CHANGES NOTED. KEPT CLEAN, DRY AND COMFORTABLE. ALL NEEDS ATTENDED. SAFETY MEASURE OBSERVED. CALL LIGHT WITH IN REACH. WILL CONT TO MONITOR.
--- NOTE | 2017-11-24 07:15 | NUR ---
RN INITIAL NOTES: REC'D PT AWAKE ON BED, NOT IN ANY FORM OF DISTRESS, A/O X 2-3, ABLE TO MOUTH WORDS. ON MECH VENT VIA TRACH, SATING 98%. IV LINE ACCESS FLUSHING WELL, PATENT & INTACT W/ NO S/SX OF INFECTION/INFILTRATION NOTED. PROVIDED COMFORT & SAFETY MEASURES. BED KEPT LOW & IN LOCKED POS. CALL LIGHT PLACED W/IN REACH. WILL CONTINUE TO MONITOR AND ATTEND PT NEEDS.
[2017-11-24] MEDS: LORAZEPAM INJ 2 MG/ML VIAL IV PRN (08:24)
--- NOTE | 2017-11-24 09:00 | NUR ---
RN NOTES: DR. MCKEON MADE AWARE THAT PT FAILED SWALLOW EVAL FOR THE FIRST TIME. ASKED DR PERMISSION IF RN CAN DO BEDSIDE EVAL, HE SAID OKAY. RN WAS ABLE TO TEST PT SWALLOWING ABILITY. TRACHE CUFF DEFLATED. NO COUGHING AND DIFFICULTY NOTED DURING EVALUATION. PT ABLE TO TOLERATE WATER AND APPLE SAUCE WELL CRUSHED MEDS W/ APPLE SAUCE. MD MADE AWARE W/ ORDER TO START PT ON PUREED DIET. DR. HILLS AND RT INFORMED.
[2017-11-24] MEDS: Z GUARD REMEDY 2 OZ OINT TP SCH ×2 (09:33→09:34)
[2017-11-24] MEDS: NITROGLYCERIN 30 GM TUBE TP SCH ×2 (09:34→23:01)
[2017-11-24] MEDS: ATORVASTATIN 40 MG TABLET PO SCH (09:39)
[2017-11-24] MEDS: AMLODIPINE BESYLATE 5 MG TABLET PO SCH (09:39)
[2017-11-24] MEDS: SERTRALINE HCL 25 MG TABLET PO SCH (09:39)
[2017-11-24] MEDS: ropiniROLE 0.5 MG TABLET PO SCH ×3 (09:39→17:40)
[2017-11-24] MEDS: CLOPIDOGREL BISULFATE 75 MG TABLET PO SCH (09:39)
[2017-11-24] MEDS: VIT B CMPLX 3/FA/VIT C/BIOTIN 1 TAB TABLET PO SCH (09:39)
[2017-11-24] MEDS: GABAPENTIN 100 MG CAPSULE PO SCH ×3 (09:39→17:41)
[2017-11-24] MEDS: TRAMADOL HCL 50 MG TABLET PO SCH ×2 (09:40→21:10)
[2017-11-24] MEDS: CARVEDILOL 6.25 MG TABLET PO SCH ×2 (09:40→21:00)
[2017-11-24] MEDS: BLOOD SUGAR DIAGNOSTIC 1 EACH STRIP IN SCH (13:43)
[2017-11-24] MEDS: CEFTRIAXONE 1 G in IV D5W 50 ML IV SCH (13:45)
--- NOTE | 2017-11-24 17:19 | NUR ---
Awake and alert pt received on mechanical vent. Pt tolerated current vent setting throughout the shift. Pt trach is secure. Vent is plugged into a red outlet, alarms are set and audible, and BVM is at bedside. Addendum: 11/24/17 at 1721 by JACINTO MCGOVERN RT Amended: Links added.
[2017-11-24] MEDS: DOCUSATE SODIUM 100 MG CAPSULE PO SCH (17:40)
--- NOTE | 2017-11-24 19:00 | NUR ---
RN CLOSING NOTES: NO ACUTE CHANGES NOTED W/IN SHIFT. PT TOLERATED MECH VENT SETTINGS W/ TRACH UNCUFFED, SATING AT 98%. IV LINE ACCESS KEPT PATENT & INTACT W/ NO S/SX OF INFECTION/INFILTRATION NOTED. PT KEPT WELL RESTED. NEEDS ATTENDED. BED KEPT LOW & IN LOCKED POS. CALL LIGHT PLACED W/IN REACH. ISOLATION PREC OBSERVED. PT ABLE TO TOLERATE LUNCH AND DINNER W/O ASPIRATION. ENDORSED TO PM RN FOR IRENE.
--- NOTE | 2017-11-24 20:00 | NUR ---
RN INITIAL NOTES: PT RESTING IN BED, PT TOLERATED MECH VENT SETTINGS W/ TRACH UNCUFFED, SATING AT 98%. IV LINE ACCESS KEPT PATENT & INTACT W/ NO S/SX OF INFECTION/INFILTRATION NOTED. BED IN THE LOW & IN LOCKED POS. CALL LIGHT PLACED W/IN REACH. ISOLATION PREC OBSERVED. PT ABLE TO TOLERATE LUNCH AND DINNER W/O ASPIRATION. WILL CONTINUE TO MONITOR.
[2017-11-24] MEDS: ATORVASTATIN 10 MG TABLET PO SCH (21:11)
[2017-11-24] MEDS: SENNOSIDES 8.6 MG TABLET PO SCH (21:11)
[2017-11-25] VITALS: BP_SYST 134; BP_SYST 98; BP_DIAS 57; BP_DIAS 58
[2017-11-25] MEDS: ALBUTEROL FS 2.5 MG/0.5 ML VIAL.NEB NEB SCH ×4 (02:11→19:45)
[2017-11-25] MEDS: IPRATROPIUM NEB FS 0.5 MG/2.5 ML AMPUL.NEB NEB SCH ×4 (02:11→19:45)
[2017-11-25 04:00] VITALS: BP 96/31
--- NOTE | 2017-11-25 05:35 | NUR ---
RT PT RECEIVED ON [facility] VENT WITH NOTED SETTING. VENT PLUGGED IN TO RED OUTLET. ALARMS SET AND AUDIBLE. AMBU BAG AT [facility]. NO SOB OR RESP DISTRESS NOTED ON SHIFT. HHN TX GIVEN ORDERED WITH NO ADVERSE REACTIONS. Addendum: 11/25/17 at 0535 by PJ JORGE RT Amended: Links added.
--- NOTE | 2017-11-25 07:45 | NUR ---
RN OPEN NOTES RECEIVED REPORT FROM SKI TECHNICIAN NURSE. PATIENT IS IB BED, ALERT AND AWAKE. NO SIGNS AND SYMPTOMS OF DISTRESS. BED IN LOW POSITION, LOCKED AND TWO SIDE RAILS ARE UP. CALL LIGHT WITHIN REACH FOR SAFETY/ WILL CONTINUE TO MONITOR AND ASSESS PATIENT
[2017-11-25 08:00] VITALS: BP 113/42
[2017-11-25] MEDS: ATORVASTATIN 40 MG TABLET PO SCH (08:41)
[2017-11-25] MEDS: GABAPENTIN 100 MG CAPSULE PO SCH ×3 (08:41→16:48)
[2017-11-25] MEDS: CARVEDILOL 6.25 MG TABLET PO SCH ×2 (08:41→22:38)
[2017-11-25] MEDS: VIT B CMPLX 3/FA/VIT C/BIOTIN 1 TAB TABLET PO SCH (08:41)
[2017-11-25] MEDS: SERTRALINE HCL 25 MG TABLET PO SCH (08:42)
[2017-11-25] MEDS: CLOPIDOGREL BISULFATE 75 MG TABLET PO SCH (08:42)
[2017-11-25] MEDS: ropiniROLE 0.5 MG TABLET PO SCH ×3 (08:42→16:48)
[2017-11-25] MEDS: TRAMADOL HCL 50 MG TABLET PO SCH ×2 (08:42→22:36)
[2017-11-25] MEDS: AMLODIPINE BESYLATE 5 MG TABLET PO SCH (08:42)
--- NOTE | 2017-11-25 08:43 | NUR ---
0900 MEDS HELD DUE TO PENDING DIALYSIS IN AM
[2017-11-25] MEDS: NITROGLYCERIN 30 GM TUBE TP SCH ×2 (08:59→22:38)
[2017-11-25] MEDS: Z GUARD REMEDY 2 OZ OINT TP SCH ×2 (09:01)
[2017-11-25 12:00] VITALS: BP 111/53
[2017-11-25] MEDS: BLOOD SUGAR DIAGNOSTIC 1 EACH STRIP IN SCH (12:10)
[2017-11-25] MEDS: CEFTRIAXONE 1 G in IV D5W 50 ML IV SCH (12:10)
[2017-11-25] MEDS: LORAZEPAM 1 MG TABLET PO PRN (12:10)
[2017-11-25] MEDS: DOCUSATE SODIUM 100 MG CAPSULE PO SCH (16:48)
--- NOTE | 2017-11-25 17:31 | NUR ---
Awake and alert female trach pt tolerated current vent settings well. No changes made. Vent is plugged into a red outlet, alarms are set and audible, and BVM is at bedside. Addendum: 11/25/17 at 1732 by JACINTO MCGOVERN RT Amended: Links added.
[2017-11-25] MEDS: HYDROCODONE/APAP 5/325MG 1 EACH TABLET PO PRN (18:23)
--- NOTE | 2017-11-25 18:47 | NUR ---
RN CLOSING NOTES PATIENT IS IN BED. ALERT AND ORIENTED TO NAME AND PLACE. PATIENT IS ON VENTILATOR, BREATHING BILATERALLY EVEN AND UNLABORED. PATIENT IS ABLE TO TOLERATE FOOD WELL WHILE THE BALLOON IS DEFLATED. NO SIGNS AND SYMPTOMS OF DISTRESS OR PAIN. IV SITE IS INTACT AND PATENT. BED IN LOW POSITION, LOCKED AND TWO SIDE RAILS ARE UP. CALL LIGHT WITHIN REACH FOR SAFETY. ALL NURSING CARE ANTICIPATED AND ATTENDED FOR. PATIENT KEPT CLEAN AND SAFE. WILL ENDORSE TO ACCOUNT LEADER NURSE.
[2017-11-25 20:00] VITALS: BP 111/53
--- NOTE | 2017-11-25 20:00 | NUR ---
RT INITIAL NOTE: PT RECEIVED ON MECH VENT WITH NOTED SETTING. INSURANCE MANAGER DONE. VENT PLUGGED INTO RED OUTLET. ALARMS SET AND AUDIBLE. AMBU BAG AT [facility]. NO SOB OR RESP DISTRESS NOTED. PRN SX GIVEN NEEDED. WILL CONT TO MONITOR PT.
--- NOTE | 2017-11-25 20:18 | NUR ---
RT NOTE: PT RECEIVED ON MECH VENT WITH NOTED SETTING. SQL ARCHITECT DONE. VENT PLUGGED INTO RED OUTLET. ALARMS SET AND AUDIBLE. AMBU BAG AT [facility]. NO SOB OR RESP DISTRESS NOTED. PRN SX GIVEN NEEDED. Q6 HHN TX GIVEN ORDERED WITH NO ADVERSE REACTIONS. WILL CONT TO MONITOR PT.
[2017-11-25 20:24] VITALS: BP 119/47
[2017-11-25] MEDS: ATORVASTATIN 10 MG TABLET PO SCH (22:39)
[2017-11-25] MEDS: SENNOSIDES 8.6 MG TABLET PO SCH (22:39)
[2017-11-26] VITALS: BP_SYST 119; BP_SYST 134; BP_DIAS 47; BP_DIAS 58
[2017-11-26] MEDS: IPRATROPIUM NEB FS 0.5 MG/2.5 ML AMPUL.NEB NEB SCH ×4 (01:17→19:04)
[2017-11-26] MEDS: ALBUTEROL FS 2.5 MG/0.5 ML VIAL.NEB NEB SCH ×4 (01:17→19:04)
[2017-11-26 04:00] VITALS: BP 112/40
--- NOTE | 2017-11-26 06:20 | NUR ---
RN CLOSING NOTE: NO CHANGES IN PT CONDITION OVER NIGHT. PT ON MECH VENT WITH NOTED SETTING. SURFACE SUPPLY BREATHING APPARATUS DONE. VENT PLUGGED INTO RED OUTLET. ALARMS SET AND AUDIBLE. AMBU BAG AT [facility]. NO SOB OR RESP DISTRESS NOTED. PRN SX GIVEN NEEDED. CALL LIGHT AT WITH IN REACH, BED IN THE LOEST AND LOCKED POSITION. ALL NEEDS ATTENDED. WILL ENDORSE TO AM RN.
[2017-11-26 08:00] VITALS: BP 113/35
--- NOTE | 2017-11-26 08:06 | NUR ---
PT RECEIVED ON [facility] VENT WITH NOTED SETTING PER MD. VENT ALARMS CHECKED AND AUDIBLE, CLIENT SUPPORT ANALYST DONE. VENT PLUGGED INTO RED OUTLET. AMBUBAG AT BEDSIDE. NO SOB OR RESP DISTRESS NOTED. PT SX'ED AND LAVAGED PRN. HHN TX GIVEN ORDERED WITH NO ADVERSE REACTIONS. PLAN IS TO CONTINUE CURRENT CARE UNDER MD ORDERS AND MONITOR PT FOR CHANGES. Addendum: 11/26/17 at 0809 by ERICK HUNG RT Amended: Links added.
[2017-11-26 08:07] LABS: *SPE A/G RATIO 0.8 (0.7-1.7); *SPE ALBUMIN 3.4 g/dL (2.9-4.4); *SPE ALPHA-1-GLOBULIN 0.6 g/dL (0.0-0.4); *SPE ALPHA-2-GLOBULIN 1.2 g/dL (0.4-1.0); *SPE BETA GLOBULIN 0.7 g/dL (0.7-1.3); *SPE GLOBULIN, TOTAL 4.1 g/dL (2.2-3.9); *SPE M-SPIKE Not Observed g/dL (Not Observed); *SPEGAMMA GLOBULIN 1.6 g/dL (0.4-1.8)
[2017-11-26] MEDS: TRAMADOL HCL 50 MG TABLET PO SCH ×2 (08:53→21:33)
[2017-11-26] MEDS: VIT B CMPLX 3/FA/VIT C/BIOTIN 1 TAB TABLET PO SCH (08:53)
[2017-11-26] MEDS: GABAPENTIN 100 MG CAPSULE PO SCH ×3 (08:54→16:32)
[2017-11-26] MEDS: CLOPIDOGREL BISULFATE 75 MG TABLET PO SCH (08:54)
[2017-11-26] MEDS: ropiniROLE 0.5 MG TABLET PO SCH ×3 (08:54→16:32)
[2017-11-26] MEDS: SERTRALINE HCL 25 MG TABLET PO SCH (08:54)
[2017-11-26] MEDS: ATORVASTATIN 40 MG TABLET PO SCH (08:55)
[2017-11-26] MEDS: Z GUARD REMEDY 2 OZ OINT TP SCH (08:55)
[2017-11-26] MEDS: NITROGLYCERIN 30 GM TUBE TP SCH ×2 (09:00→21:34)
[2017-11-26] MEDS: CARVEDILOL 6.25 MG TABLET PO SCH ×2 (09:00→21:32)
[2017-11-26] MEDS: AMLODIPINE BESYLATE 5 MG TABLET PO SCH (09:00)
[2017-11-26] MEDS: ALBUMIN 25% 25 GM in PREMIX 1 EA IV PRN (11:06)
[2017-11-26 12:00] VITALS: BP 88/37
[2017-11-26] MEDS ORDERED: LACTULOSE 10 G/15 ML UDC (PYXIS) PO PRN ×2 (12:30→18:30)
[2017-11-26] MEDS: CEFTRIAXONE 1 G in IV D5W 50 ML IV SCH (12:58)
[2017-11-26] MEDS: BLOOD SUGAR DIAGNOSTIC 1 EACH STRIP IN SCH (13:03)
[2017-11-26] MEDS: HYDROCODONE/APAP 5/325MG 1 EACH TABLET PO PRN (13:23)
[2017-11-26 16:00] VITALS: BP 110/48
[2017-11-26] MEDS: DOCUSATE SODIUM 100 MG CAPSULE PO SCH (16:33)
[2017-11-26 20:00] VITALS: BP_SYST 110; BP_SYST 132; BP_DIAS 106; BP_DIAS 48
--- NOTE | 2017-11-26 20:00 | NUR ---
RN INITIAL NOTE: RECEIVED PT RESTING IN BED. [facility] WITH [facility]. FITTER/WELDER DONE. VENT PLUGGED INTO RED OUTLET. ALARMS SET AND AUDIBLE. AMBU BAG AT [facility]. NO SOB OR RESP DISTRESS NOTED. PRN SX GIVEN NEEDED. CALL LIGHT AT WITH IN REACH, BED IN THE LOWEST AND LOCKED POSITION. WILL CONT TO MONITOR .
[2017-11-26] MEDS: SENNOSIDES 8.6 MG TABLET PO SCH (21:33)
--- NOTE | 2017-11-26 23:13 | NUR ---
RT NOTE: PT RECEIVED ON MECH VENT WITH NOTED SETTING. CHAR FILTER OPERATOR HELPER DONE. VENT PLUGGED INTO RED OUTLET. ALARMS SET AND AUDIBLE. AMBU BAG AT [facility]. NO SOB OR RESP DISTRESS NOTED. PRN SX GIVEN NEEDED. Q6 HHN TX GIVEN ORDERED WITH NO ADVERSE REACTIONS. PMV AT BEDSIDE. WILL CONT TO MONITOR PT.
[2017-11-27] VITALS: BP 130/80
[2017-11-27] MEDS: IPRATROPIUM NEB FS 0.5 MG/2.5 ML AMPUL.NEB NEB SCH ×3 (01:06→13:30)
[2017-11-27] MEDS: ALBUTEROL FS 2.5 MG/0.5 ML VIAL.NEB NEB SCH ×3 (01:06→13:30)
[2017-11-27 04:00] VITALS: BP 129/80
[2017-11-27 06:56] LABS: BASOPHILS % (AUTO) 0.2 % (0.0-2.0); EOSINOPHILS # (AUTO) 0.2 /CMM (0.0-0.7); HEMATOCRIT 29 % (33-45); HEMOGLOBIN 9.3 g/dL (11.5-14.8); LYMPHOCYTES # (AUTO) 1.2 /CMM (0.8-4.8); LYMPHOCYTES % (AUTO) 15.6 % (20.0-44.0); MEAN CORPUSCULAR HEMOGLOBIN 30 PG (26.0-33.0); MEAN CORPUSCULAR HGB CONC 33 g/dl (31.0-36.0); MEAN CORPUSCULAR VOLUME 91 fL (82-100); MONOCYTES # (AUTO) 0.6 /CMM (0.1-1.30); NEUTROPHILS # (AUTO) 5.8 /CMM (1.8-8.9); NEUTROPHILS % (AUTO) 73.2 % (43.0-81.0); PLATELET COUNT (AUTO) 119 /CMM (150-450); RDW COEFFICIENT OF VARIATION 16.1 (11.5-15.0); RED BLOOD CELL COUNT(AUTO) 3.14 MIL/uL (4.0-5.2); WHITE BLOOD COUNT (AUTO) 7.9 K/uL (4.3-11.0)
[2017-11-27 08:00] VITALS: BP 143/76
--- NOTE | 2017-11-27 08:06 | NUR ---
RN CLOSING NOTE: RECEIVED PT RESTING IN BED. [facility] WITH [facility]. PUBLICATION DIRECTOR DONE. VENT PLUGGED INTO RED OUTLET. ALARMS SET AND AUDIBLE. AMBU BAG AT [facility]. NO SOB OR RESP DISTRESS NOTED. PRN SX GIVEN NEEDED. CALL LIGHT AT WITH IN REACH, BED IN THE LOWEST AND LOCKED POSITION. WILL ENDORSE TO AM RN .
[2017-11-27] MEDS: ropiniROLE 0.5 MG TABLET PO SCH ×2 (08:38→12:30)
[2017-11-27] MEDS: TRAMADOL HCL 50 MG TABLET PO SCH (08:39)
[2017-11-27] MEDS: GABAPENTIN 100 MG CAPSULE PO SCH ×2 (08:39→12:31)
[2017-11-27] MEDS: AMLODIPINE BESYLATE 5 MG TABLET PO SCH (08:40)
[2017-11-27] MEDS: ATORVASTATIN 40 MG TABLET PO SCH (08:41)
[2017-11-27] MEDS: CARVEDILOL 6.25 MG TABLET PO SCH (08:41)
[2017-11-27] MEDS: VIT B CMPLX 3/FA/VIT C/BIOTIN 1 TAB TABLET PO SCH (08:41)
[2017-11-27] MEDS: SERTRALINE HCL 25 MG TABLET PO SCH (08:41)
[2017-11-27] MEDS: CLOPIDOGREL BISULFATE 75 MG TABLET PO SCH (08:41)
[2017-11-27] MEDS: NITROGLYCERIN 30 GM TUBE TP SCH (08:42)
[2017-11-27 08:59] LABS: ALANINE AMINOTRANSFERASE 86 U/L (12-78); ALBUMIN 2.7 g/dL (3.4-5.0); ALKALINE PHOSPHATASE 108 U/L (46-116); ASPARTATE AMINOTRANSFERASE 47 U/L (15-37); BILIRUBIN,TOTAL 0.6 mg/dL (0.2-1.0); CALCIUM, SERUM 8.4 mg/dL (8.5-10.1); CARBON DIOXIDE 27 mmol/L (21-32); CHLORIDE 94 mmol/L (98-107); CREATININE 4.7 mg/dL (0.6-1.3); GLUCOSE 170 mg/dL (74-106); MAGNESIUM 2.1 mg/dL (1.8-2.4); PHOSPHORUS 3.5 mg/dL (2.5-4.9); POTASSIUM 4.3 mmol/L (3.5-5.1); SODIUM SERUM 132 mmol/L (136-145); TOTAL PROTEIN, SERUM 7.6 g/dL (6.4-8.2); UREA NITROGEN, BLOOD 52 mg/dL (7-18)
[2017-11-27] MEDS: HYDROCODONE/APAP 5/325MG 1 EACH TABLET PO PRN (09:29)
[2017-11-27 10:00] VITALS: BP 119/68
[2017-11-27] MEDS ORDERED: ATOR40TA PO (10:01)
[2017-11-27] MEDS ORDERED: ALLA266C2 TP (10:01)
[2017-11-27] MEDS ORDERED: ZOLP5TAB2 PO (10:01)
[2017-11-27] MEDS: CEFTRIAXONE 1 G in IV D5W 50 ML IV SCH (11:46)
[2017-11-27 12:00] VITALS: BP 119/68
--- NOTE | 2017-11-27 12:19 | NUR ---
RT NOTE; PATIENT RECEIVED TRACHED ON PB 840 VENT. ALARMS VERIFIED AND AUDIBLE. SUCTIONED AND LAVAGED THICK HOOD SECRETIONS. DEFLATED TRACH CUFF AND PLACED PMV FOR EVERY MEAL. NO ADVERSE REACTIONS NOTED. VENT PLUGGED INTO RED OUTLET. AMBU BAG AT [facility].
[2017-11-27] MEDS: BLOOD SUGAR DIAGNOSTIC 1 EACH STRIP IN SCH (12:31)
--- NOTE | 2017-11-27 13:53 | NUR ---
WAX PATTERN REPAIRER NOTE PT DC TO [facility]. DC INSTRUCTIONS SIGNED BY PATIENT. ALL ORDERS CARRIED OUT. PT STABLE DC IV AND ID BAND. PT TRANSFERRED VIA AMBULANCE. PHOTOS TAKEN AND PLACED IN CHART. ALL QUESTIONS AND CONCERNS ANSWERED. PT LEFT WITH BELONGINGS. PT CLEAN AND DRY. EXIT CARE EDUCATION DONE. REPORT CALLED AND GIVEN TO ANANDA BROWN @ 1123 AM.
--- NOTE | 2017-11-27 14:04 | NUR ---
RT NOTE: PATIENT BEING DISCHARGED AT THIS TIME RESP. TREATMENT NOT GIVEN.
== END 2017-11-27 14:11 | DRG 720 ==
LOC: ER 08:54 → TELE1 11:47
PROVIDERS: ADMIT Internal Medicine; ATTEND Internal Medicine
PROC: 5A1955Z Respiratory Ventilation, Greater than 96 Consecutive Hours (ICD-10-PCS; principal; 2017-11-21)
PROC: 05H633Z Insertion of Infusion Device into Left Subclavian Vein, Percutaneous Approach (ICD-10-PCS; 2017-11-23)
PROC: B547ZZA Ultrasonography of Left Subclavian Vein, Guidance (ICD-10-PCS; 2017-11-23)
DX: A41.9 Sepsis, unspecified organism (principal); I21.A1 Myocardial infarction type 2; J90 Pleural effusion, not elsewhere classified; Z99.11 Dependence on respirator [ventilator] status; I13.2 Hypertensive heart and chronic kidney disease with heart failure and with stage 5 chronic kidney disease, or end stage renal disease; L89.151 Pressure ulcer of sacral region, stage 1; J96.11 Chronic respiratory failure with hypoxia; Z93.0 Tracheostomy status; J44.9 Chronic obstructive pulmonary disease, unspecified; N18.6 End stage renal disease; I50.9 Heart failure, unspecified; Z99.2 Dependence on renal dialysis; Z93.1 Gastrostomy status; Z86.73 Personal history of transient ischemic attack (TIA), and cerebral infarction without residual deficits; D63.8 Anemia in other chronic diseases classified elsewhere; E11.22 Type 2 diabetes mellitus with diabetic chronic kidney disease; E11.41 Type 2 diabetes mellitus with diabetic mononeuropathy; E78.5 Hyperlipidemia, unspecified; F41.9 Anxiety disorder, unspecified; G47.33 Obstructive sleep apnea (adult) (pediatric); I25.10 Atherosclerotic heart disease of native coronary artery without angina pectoris; Z79.899 Other long term (current) drug therapy; K59.00 Constipation, unspecified; E03.9 Hypothyroidism, unspecified; Z79.01 Long term (current) use of anticoagulants; Z79.4 Long term (current) use of insulin; N39.0 Urinary tract infection, site not specified
CPT/HCPCS: 31720; 36415; 36569; 71010-TC; 71045; 80048-TC; 80053-TC; 80061-TC; 80076-TC; 81000-TC; 82962-TC; 83605-TC; 83735-TC; 84100-TC; 84155; 84165; 84484-TC; 85025-TC; 85730-TC; 87040-TC; 87081-TC; 87086-TC; 87186-TC; 90935-TC; 92526; 92611-TC; 93307-TC; 94003-TC; 94760-TC; A4216; A4606; J0696; J2060; J2270; J2405; J3370; J3490; J7030; J7060; L8501; P9047; Q0163; Z7610

== ENCOUNTER 2018-01-25 09:59 | Emergency (ER) | payer MEDICARE, MEDICAID ==
[~2018-01-25] VITALS: Ht 165.1 cm; Wt 90.7 kg
[~2018-01-25 09:59] MED LIST changes: +ALLA266C2 TP; +AMLO5TAB2 PO; +ATOR40TA PO; +BENZ1LOZ12 MM; +DIPH25CA6 PO; -FERR325T28 PO; -HEPA50008 SQ; -HYDR-3326 PO; +HYDR-3974 PO; +HYDR-4076 PO; +IBUP-1955 PO; +ZOLP5TAB2 PO
--- NOTE | 2018-01-25 10:05 | NUR ---
MD LAMB AT BEDSIDE
--- NOTE | 2018-01-25 10:06 | NUR ---
BIBPA FROM [facility] DT TO RIGHT UPPER ARM PAIN, 6/10 X 1 WEEK. DENIES TRAUMA. PT IS AFEBRILE. VSS. VENT/ TRACHE DEPENDENT. PATIENT IS AO4.
[2018-01-25 10:10] VITALS: BP 126/58
--- NOTE | 2018-01-25 10:10 | NUR ---
UX CONSULTANT AT BEDSIDE
--- NOTE | 2018-01-25 10:10 | NUR ---
PLACED PT ON VENT AC-18, VT 600, 35%, PEEP 5, PT TRACH. VENT ALARMS SET AND FUNCTIONING. AMBU BAG AT BEDSIDE. WILL CONTINUE TO MONITOR PT.
--- NOTE | 2018-01-25 10:28 | NUR ---
CALLED TRANSPORT ETA IS 1300 PER [place] TRIP NUMBER IS [id number]
[2018-01-25 12:49] VITALS: BP 126/58
--- NOTE | 2018-01-25 12:50 | NUR ---
PATIENT WAS PICKED UP BY [employer]EARCH PROGRAM INTERN. VSS
--- NOTE | 2018-01-25 12:50 | NUR ---
SPOKE WITH MARIAA LAI FOR IRENE
== END 2018-01-25 12:51 | disposition home or self-care (01) ==
LOC: ER 10:01
DX: M77.8 Other enthesopathies, not elsewhere classified (principal); I12.0 Hypertensive chronic kidney disease with stage 5 chronic kidney disease or end stage renal disease; E11.22 Type 2 diabetes mellitus with diabetic chronic kidney disease; N18.6 End stage renal disease; Z99.2 Dependence on renal dialysis; J90 Pleural effusion, not elsewhere classified; D64.9 Anemia, unspecified; Z79.4 Long term (current) use of insulin
CPT/HCPCS: 73070; 99284; A4606; Z7610

== ENCOUNTER 2018-03-15 10:02 | Emergency (ER) | payer MEDICARE, MEDICAID ==
[~2018-03-15] VITALS: Ht 160 cm; Wt 108.0 kg
[~2018-03-15 10:02] MED LIST changes: -AMLO5TAB2 PO; +AMLO5TAB7 PO; -IPRA3AMP IH; +IPRA3AMP23 IH
--- NOTE | 2018-03-15 10:15 | NUR ---
[facility]- POST DIALYSIS WITH C/O RECTAL PAIN 10/10 X 3 WEEK, PATIENT IS AFEBRILE.NOTED RECTAL AREA WITH REDNESS.
--- NOTE | 2018-03-15 10:32 | NUR ---
RT RECEIVED PT ON AC 18, VT600, +5. 35% FIO2, PER EMT SETTINGS, PT AWAKE ALERT, AMBUBAG AT [facility], TRACH PATENT AND SECURED, WILL MONITOR CLOSELY
[2018-03-15] MEDS ORDERED: Z GUARD REMEDY 2 OZ OINT TP ONE (11:00)
--- NOTE | 2018-03-15 11:16 | NUR ---
CALLED [facility] FOR TRANSPORT BACK TO [facility], ETA 1400. Addendum: 03/15/18 at 1119 by RUBIN BACK TO [facility]
[2018-03-15 15:53] VITALS: BP 122/60
--- NOTE | 2018-03-15 15:53 | NUR ---
Patient discharged to home in stable condition. Written and verbal after care instructions given. Patient verbalizes understanding of instruction. PATIENT WAS PICKED UP BY [facility]
== END 2018-03-15 15:54 | disposition home or self-care (01) ==
LOC: ER 10:04
DX: K62.89 Other specified diseases of anus and rectum (principal); E11.9 Type 2 diabetes mellitus without complications; I10 Essential (primary) hypertension; J90 Pleural effusion, not elsewhere classified; Z79.4 Long term (current) use of insulin; Z99.2 Dependence on renal dialysis; Z98.890 Other specified postprocedural states
CPT/HCPCS: A4606; Z7610

== ENCOUNTER 2019-02-12 15:11 | Inpatient (IN) | payer MEDICARE, MEDICAID ==
[~2019-02-12] VITALS: Ht 165.1 cm; Wt 106.1 kg
[~2019-02-12 15:11] MED LIST changes: -AMLO5TAB7 PO; +AMLO5TAB9 PO
--- NOTE | 2019-02-12 15:22 | NUR ---
PT BIBPA FROM SNF, ENROUTE TO DIALYSIS PT C/O SOB. PT IS VENT AND TRACHE DEPENDENT; PT AAOX3, PT ON MONITOR, VSS, PENDING MD KWAN
[2019-02-12 15:26] VITALS: BP 120/57
[2019-02-12 15:46] LABS: BASOPHILS % (AUTO) 0.6 % (0.0-2.0); EOSINOPHILS % (AUTO) 1.9 % (0.0-6.0); HEMATOCRIT 30 % (33-45); HEMOGLOBIN 9.2 g/dL (11.5-14.8); LYMPHOCYTES # (AUTO) 0.7 /CMM (0.8-4.8); MEAN CORPUSCULAR HGB CONC 31 g/dl (31.0-36.0); MEAN CORPUSCULAR VOLUME 96 fL (82-100); MONOCYTES # (AUTO) 0.4 /CMM (0.1-1.30); MONOCYTES % (AUTO) 7.1 % (2.0-12.0); NEUTROPHILS # (AUTO) 4.3 /CMM (1.8-8.9); NEUTROPHILS % (AUTO) 77.4 % (43.0-81.0); PLATELET COUNT (AUTO) 111 /CMM (150-450); WHITE BLOOD COUNT (AUTO) 5.5 K/uL (4.3-11.0)
[2019-02-12 15:52] LABS: CALCIUM, SERUM 7.9 mg/dL (8.5-10.1); CARBON DIOXIDE 28 mmol/L (21-32); CHLORIDE 98 mmol/L (98-107); GLUCOSE 121 mg/dL (74-106); POTASSIUM 4.7 mmol/L (3.5-5.1); SODIUM SERUM 138 mmol/L (136-145); UREA NITROGEN, BLOOD 53 mg/dL (7-18)
[2019-02-12 16:05] LABS: ALANINE AMINOTRANSFERASE 13 U/L (12-78); ALBUMIN 2.6 g/dL (3.4-5.0); ALKALINE PHOSPHATASE 91 U/L (46-116); ASPARTATE AMINOTRANSFERASE 13 U/L (15-37); B-TYPE NATRIURETIC PEPTIDE 46732 PG/ML (0-125); BILIRUBIN,DIRECT 0.2 mg/dL (0.0-0.2); BILIRUBIN,TOTAL 0.4 mg/dL (0.2-1.0); TOTAL PROTEIN, SERUM 7.4 g/dL (6.4-8.2)
[2019-02-12 16:06] LABS: ABG BASE EXCESS -0.5 mmol/L; ABG OXYGEN SATURATION 97.6 % (92.0-98.5); ABG PCO2 35.1 mmHg (35.0-45.0); ABG PH 7.441 (7.350-7.450); ABG PO2 142.7 mmHg (75.0-100.0); AaDO2 102.1 mmHg; MetHb 0.2 % (0.0-1.5); O2Hb 95.5 % (94.0-97.0); PEEP,BG 4 cm H2O; SITE, ABG Right Radial; VT, ABG 650 mL
--- NOTE | 2019-02-12 16:06 | NUR ---
RT Pt received from transport RT on [facility] vent w charted settings. Pt experienced sob and was brought here from facility. Vent is plugged into red outlet w bvm @ [facility]. Alarms are set and audible. Trach is patent and secure. Pt is tolerating settings. No respiratory distress noted @ this time. Addendum: 02/12/19 at 1609 by VLADIMIR URIARTE RT Amended: Links added.
[2019-02-12 17:47] VITALS: BP 141/68
[2019-02-12 21:00] VITALS: BP 122/65
--- NOTE | 2019-02-12 21:05 | NUR ---
REPORT GIVEN TO TERRENCE RN FOR IRENE; PT WILL BE TRANSPORTED TO 1ST FLOOR/GAIL VIA [facility]S PROTOCOL.
[2019-02-12] MEDS ORDERED: CYCL5TAB PO (21:26)
[2019-02-12] MEDS ORDERED: TRAZ-182 PO (21:26)
[2019-02-12] MEDS ORDERED: PREG150C PO (21:26)
[2019-02-12] MEDS ORDERED: DEXT15DR6 EACHEYE (21:26)
[2019-02-12] MEDS ORDERED: OMEP20TA5 PO (21:26)
[2019-02-12] MEDS ORDERED: SEVE2.4P3 PO (21:26)
[2019-02-12] MEDS ORDERED: LORA-259 PO (21:26)
[2019-02-12] MEDS ORDERED: LACT10SO PO (21:26)
[2019-02-12] MEDS ORDERED: HYDR-3024 PO (21:26)
[2019-02-12] MEDS ORDERED: CALC667C6 PO (21:26)
[2019-02-12] MEDS ORDERED: FERR325T24 PO (21:26)
[2019-02-12] MEDS ORDERED: ASPI-1169 PO (21:26)
[2019-02-12] MEDS ORDERED: MAGNESIUM HYDROXIDE 30 ML UDC PO PRN (21:30)
[2019-02-12] MEDS ORDERED: ONDANSETRON HCL/PF 4 MG/2 ML VIAL IVP PRN (21:30)
[2019-02-12] MEDS ORDERED: CYCLOBENZAPRINE 10 MG TABLET PO PRN (21:30)
[2019-02-12] MEDS ORDERED: hydrALAZINE HCL 25 MG TABLET PO PRN (21:30)
[2019-02-12] MEDS ORDERED: MAG HYDROX/AL HYDROX/SIMETH 30 ML UDC PO PRN (21:30)
[2019-02-12] MEDS: CEFTRIAXONE 1 G in IV D5W 50 ML IV SCH (21:30)
[2019-02-12] MEDS ORDERED: Z GUARD REMEDY 2 OZ OINT TP PRN (21:30)
[2019-02-12] MEDS: ALBUTEROL FS 2.5 MG/3 ML VIAL.NEB NEB SCH (21:58)
[2019-02-12] MEDS: DOCUSATE SODIUM 100 MG CAPSULE PO SCH (22:15)
[2019-02-12] MEDS: AZITHROMYCIN 250 MG TABLET PO SCH (22:15)
[2019-02-12] MEDS: TRAZODONE 50 MG TABLET PO SCH (22:15)
[2019-02-12] MEDS: ISOSORBIDE DINITRATE (10MG) 10 MG TABLET PO SCH (22:16)
[2019-02-12 22:32] VITALS: BP 122/65
--- NOTE | 2019-02-12 23:19 | NUR ---
RT NOTE PT RECEIVED ON [facility] VENT ON THE FOLLOWING NOTED SETTINGS FROM ER. VENT IS PLUGGED INTO RED OUTLET. ALARMS ARE ON AUDIBLE. CONT PULSE OX CONNECTED WELL. AMBU BAG IS AT BEDSIDE. NO RESP DISTRESS NOTED. BREATHING TX GIVEN, NO ADVERSE REACTION. PT SX'D. Addendum: 02/12/19 at 2321 by MARKELL BOLAÑOS RT Amended: Links added.
[2019-02-12] MEDS ORDERED: CEFTRIAXONE 1 G VIAL ONE (23:34)
[2019-02-13] VITALS (8 sets, daily range): BP systolic 92–120; BP diastolic 42–65
--- NOTE | 2019-02-13 05:02 | NUR ---
rn notes received patient from er at about 2100 via stretcher accompanied by 2 staff and rt. on a ventilator, well tolerated. no distress noted. breathing even and unlabored. no complaint of pain or discomfort. alert and oriented, can verbally or mouthwords communicate needs. skin assessment done. needs attended. kept clean and dry
[2019-02-13] MEDS: ISOSORBIDE DINITRATE (10MG) 10 MG TABLET PO SCH ×2 (05:17→12:59)
[2019-02-13 07:07] LABS: BASOPHILS % (AUTO) 0.7 % (0.0-2.0); EOSINOPHILS % (AUTO) 1.5 % (0.0-6.0); HEMATOCRIT 26 % (33-45); HEMOGLOBIN 8.3 g/dL (11.5-14.8); LYMPHOCYTES # (AUTO) 0.9 /CMM (0.8-4.8); LYMPHOCYTES % (AUTO) 19.3 % (20.0-44.0); MEAN CORPUSCULAR HGB CONC 32 g/dl (31.0-36.0); MEAN CORPUSCULAR VOLUME 95 fL (82-100); MONOCYTES # (AUTO) 0.3 /CMM (0.1-1.30); MONOCYTES % (AUTO) 6.5 % (2.0-12.0); NEUTROPHILS # (AUTO) 3.5 /CMM (1.8-8.9); PLATELET COUNT (AUTO) 105 /CMM (150-450); RED BLOOD CELL COUNT(AUTO) 2.77 MIL/uL (4.0-5.2); WHITE BLOOD COUNT (AUTO) 4.8 K/uL (4.3-11.0)
[2019-02-13 07:16] LABS: CHOLESTEROL 62 mg/dL (<200); HDL CHOLESTEROL 33 mg/dL (40-60); LDL 21 mg/dL (0-99); TRIGLYCERIDES 89 mg/dL (30-150)
[2019-02-13 07:22] LABS: CARBON DIOXIDE 25 mmol/L (21-32); CHLORIDE 99 mmol/L (98-107); CREATININE 5.3 mg/dL (0.6-1.3); GLUCOSE 111 mg/dL (74-106); MAGNESIUM 2.6 mg/dL (1.8-2.4); PHOSPHORUS 4.8 mg/dL (2.5-4.9); POTASSIUM 4.9 mmol/L (3.5-5.1); SODIUM SERUM 138 mmol/L (136-145); UREA NITROGEN, BLOOD 61 mg/dL (7-18)
--- NOTE | 2019-02-13 07:30 | NUR ---
RN NOTES RECEIVED PATIENT IN BED, ASLEEP BUT AROUSES TO VOICE, ALERT AND ORIENTED X 2-3, ABLE TO COMMUNICATE AND RESPOND WELL. TRACH TO VENT, TOLERATING CURRENT VENT SETTING, BREATHING EVEN AND UNLABORED. SATING WELL. PATIENT SINUS RHYTHM WITH HR AT 60'S. AV SHUNT ON THE L ARM, WITH BRUIT. RAC G [address] AND INTACT, PATENT ON FLUSHING. DRESSING CDI. HOB KEPT ELEVATED. PATIENT ENCOURAGE TO CALL FOR HELP OR ASSISTANCE. SAFETY MEASURES OBSERVED AND KEPT IN PLACE. BED LOW AND LOCKED. CALL LIGHT PLACED WITHIN REACH. WILL CONTINUE TO MONITOR
[2019-02-13] MEDS: ALBUTEROL FS 2.5 MG/3 ML VIAL.NEB NEB SCH ×4 (07:32→19:23)
--- NOTE | 2019-02-13 08:53 | NUR ---
RT Pt received on [facility] vent with charted settings. Vent is plugged into red outlet with bvm at [facility]. Alarms are set and audible. Trach is patent and secure. Pt is tolerating settings. hhn tx given with no adverse reaction. No respiratory distress noted at this time. will continue to monitor. Addendum: 02/13/19 at 0856 by ERNST SANCHEZ RT Amended: Links added.
[2019-02-13] MEDS ORDERED: BISA10SU8 RC (09:02)
[2019-02-13] MEDS ORDERED: ACET-868 PO (09:02)
[2019-02-13] MEDS ORDERED: SIME80TA15 PO (09:02)
[2019-02-13] MEDS ORDERED: ERGO500014 PO (09:02)
[2019-02-13] MEDS ORDERED: DIPH25CA6 PO (09:02)
[2019-02-13] MEDS ORDERED: HEPA50008 SQ (09:02)
[2019-02-13] MEDS: ropiniROLE 0.5 MG TABLET PO SCH ×3 (09:30→18:01)
[2019-02-13] MEDS: DOCUSATE SODIUM 100 MG CAPSULE PO SCH ×2 (09:30→18:01)
[2019-02-13] MEDS: AZITHROMYCIN 250 MG TABLET PO SCH (09:31)
--- NOTE | 2019-02-13 10:04 | NUR ---
WOUND CARE CONSULT: PT PRESENTS WITH SCARRING TO SACRUM AND LEFT BREASTFOLD MOISTURE ASSOCIATED OPEN SKIN, PRESENT ON ADMISSION. PT IS INCONTINENT OF STOOL AND URINE. RECOMMENDATIONS MADE FOR SKIN PROTECTION AND SKIN CARE. DISCUSSED WITH NURSING STAFF. PT ON [facility] LOW AIRLOSS BED. WILL SEE PRN. HUTCHINSON IN AGREEMENT WITH PLAN OF CARE. Addendum: 02/13/19 at 1007 by ALEXANDER WYMAN WNDNU Amended: Links added.
[2019-02-13] MEDS: HYDROCODONE/APAP 5/325MG 1 EACH TABLET PO PRN ×2 (15:32→22:26)
--- NOTE | 2019-02-13 15:45 | NUR ---
Patient is trach/vent dependent. Alert and responsive, currently resides at [facility] [phone]. She is bed and chair bound, requires max to total assist with adl's. She receives her hemodialysis every TTHS 5:30AM at [facility] [phone]. Current dc plan is to return to [facility] when discharge. Addendum: 02/13/19 at 1545 by IMELDA ARMSTRONG RN Amended: Links added.
--- NOTE | 2019-02-13 16:43 | NUR ---
RT PATIENT PLACED ON PMV PER MD ORDER. PT COMFORTABLE AND NO RESPIRATORY DISTRESS NOTED AT THIS TIME. WILL CONTINUE TO MONITOR. Addendum: 02/13/19 at 1645 by ERNST SANCHEZ RT Amended: Links added.
--- NOTE | 2019-02-13 17:00 | NUR ---
RN NOTES PATIENT HAD DIALYSIS TREATMENT DONE. PATIENT ABLE TO TOLERATE PROCEDURE WELL. 1800 ML TAKEN OUT OF THE PATIENT. BLOOD PRESSURE 120/45, HR AT 60, TEMP AT 97.8
--- NOTE | 2019-02-13 19:44 | NUR ---
RN NOTES ENDORSED FOR CONTINUITY OF CARE. NO ACUTE CHANGES WITHIN THE SHIFT. ALL NURSING NEEDS ATTENDED AND MET. SAFETY MEASURES KEPT IN PLACE AT ALL TIMES. CALL LIGHT PLACED WITHIN REACH
[2019-02-13] MEDS: CEFTRIAXONE 1 G in IV D5W 50 ML IV SCH (21:22)
[2019-02-13] MEDS: PREGABALIN 25 MG CAPSULE PO SCH (21:26)
[2019-02-13] MEDS: TRAZODONE 50 MG TABLET PO SCH (21:27)
[2019-02-13] MEDS: ZOLPIDEM TARTRATE 5 MG TABLET PO PRN (21:29)
[2019-02-13] MEDS ORDERED: diphenhydrAMINE HCL 50 MG CAPSULE PO PRN (22:00)
--- NOTE | 2019-02-13 22:30 | NUR ---
TELE-1/ART GLASS SETTER PT COMPLAINT OF PAIN FROM LINK CATH. PT REQUESTED THAT IT BE REMOVED. I REMOVED THE LINK CATH PT TOLERATED WELL. WILL CONTINUE TO MONITOR.
[2019-02-14] VITALS: BP 74/43
[2019-02-14] MEDS: HYDROCODONE/APAP 5/325MG 1 EACH TABLET PO PRN ×4 (03:05→22:29)
[2019-02-14 04:00] VITALS: BP 85/38
[2019-02-14 06:59] LABS: BASOPHILS % (AUTO) 0.8 % (0.0-2.0); HEMATOCRIT 25 % (33-45); HEMOGLOBIN 7.9 g/dL (11.5-14.8); LYMPHOCYTES # (AUTO) 0.9 /CMM (0.8-4.8); LYMPHOCYTES % (AUTO) 24.4 % (20.0-44.0); MEAN CORPUSCULAR HGB CONC 32 g/dl (31.0-36.0); MEAN CORPUSCULAR VOLUME 93 fL (82-100); MONOCYTES # (AUTO) 0.3 /CMM (0.1-1.30); MONOCYTES % (AUTO) 7.4 % (2.0-12.0); NEUTROPHILS # (AUTO) 2.3 /CMM (1.8-8.9); NEUTROPHILS % (AUTO) 65.4 % (43.0-81.0); PLATELET COUNT (AUTO) 96 /CMM (150-450); RED BLOOD CELL COUNT(AUTO) 2.65 MIL/uL (4.0-5.2); WHITE BLOOD COUNT (AUTO) 3.6 K/uL (4.3-11.0)
--- NOTE | 2019-02-14 07:00 | NUR ---
MARKETING COMMUNICATIONS LEADER OPENING NOTES RECEIVED PT IN BED, A/OX3. PT C/O HEADACHE. REPOSITIONED PT, PAIN WAS RELIEVED. PT ON [facility] VENTILATOR WITH SETTINGS MD ORDERED. PT IS TOLERATING SETTINGS. RT AT BEDSIDE, SPARE TRACH/AMBU BAG AT BS. ON TELE SB 45-50'S BUT ASYMPTOMATIC. PT IS HYPOTENSIVE, BP TAKEN ON LEGS. ISOLATION PRECAUTIONS MAINTAINED. BED IN LOCKED/LOWEST POSITION. CALL LIGHT IN REACH. WILL CONT TO MONITOR.
[2019-02-14 07:03] LABS: CARBON DIOXIDE 26 mmol/L (21-32); CHLORIDE 99 mmol/L (98-107); GLUCOSE 84 mg/dL (74-106); POTASSIUM 3.8 mmol/L (3.5-5.1); SODIUM SERUM 137 mmol/L (136-145); UREA NITROGEN, BLOOD 42 mg/dL (7-18)
[2019-02-14] MEDS: ALBUTEROL FS 2.5 MG/3 ML VIAL.NEB NEB SCH ×4 (07:29→19:29)
[2019-02-14 07:50] LABS: LYMPHOCYTES % (MANUAL) 17 % (16-48); MONOCYTES % (MANUAL) 6 % (0-11.0); NEUTROPHILS % (MANUAL) 77 (42-76)
[2019-02-14] MEDS: ACETAMINOPHEN 325 MG TABLET PO PRN (07:51)
[2019-02-14 08:00] VITALS: BP 88/56
[2019-02-14] MEDS: ropiniROLE 0.5 MG TABLET PO SCH ×3 (08:50→16:22)
[2019-02-14] MEDS: DOCUSATE SODIUM 100 MG CAPSULE PO SCH ×2 (08:50→16:21)
--- NOTE | 2019-02-14 09:33 | NUR ---
RT PATIENT RECEIVED TRACH'D WITH SHILEY #8 XLT CUFFED ON [facility] VENT WITH SETTING PER MD ORDER. CNC SERVICE TECHNICIAN DONE. VENT PLUGGED INTO RED OUTLET. AMBU BAG AT HEAD OF BED. PATIENT IS AWAKE, ALERT AND VERBALLY RESPONSIVE. VENT ALARMS ON AND FUNCTIONING PROPERLY. BREATHING TX'S GIVEN ORDERED. NO ADVERSE REACTIONS OBSERVED. SUCTIONED SMALL AMOUNTS OF THICK, PALE YELLOW SECRETIONS. NO SIGNS OF DISTRESS NOTED AT THIS TIME. WILL CONTINUE TO MONITOR FOR ANY CHANGES. Addendum: 02/14/19 at 1002 by MACIE CARRIZALES RT Amended: Links added.
[2019-02-14 12:00] VITALS: BP_SYST 78; BP_SYST 82; BP_DIAS 26; BP_DIAS 32
[2019-02-14 12:58] LABS: OCCULT BLOOD STOOL NEGATIVE (NEGATIVE)
[2019-02-14 16:00] VITALS: BP 82/26
--- NOTE | 2019-02-14 18:48 | NUR ---
ROUTING CLERK CLOSING NOTES PT RESTING IN BED, PASSY MARGIE VALVE ON. PT IS TOLERATING VENT SETTINGS WELL. NO S/S OF DISTRESS AT THIS TIME. C/O PAIN IN SACRUM/HEADACHE INTERMITTENTLY THROUGHOUT SHIFT. WAS GIVEN PRN MEDS. BED IN LOCKED/LOWEST POSITION. CALL LIGHT IN REACH. WILL ENDORSE TO PM NURSE FOR IRENE.
--- NOTE | 2019-02-14 19:00 | NUR ---
HELP DESK ASSISTANT NOTES Received patient A/O X3, awake on semi-Nunez's position on bed with patent JOSELO midline G#18, SL. On mechanical vent with settings noted, saturating well, no SOB/respiratory distress noted. On continuous pulse ox monitoring as ordered. No complaint of discomfort at this time. Incontinent, on diaper. Kept clean, dry and comfortable. Kept bed on lowest position, side rails up, call light within easy reach. 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 Will continue to monitor accordingly.
--- NOTE | 2019-02-14 19:05 | NUR ---
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 Patient remained stable at this time.
[2019-02-14 20:00] VITALS: BP 100/63
--- NOTE | 2019-02-14 21:40 | NUR ---
RT PATIENT WAS RECEIVED ON CONTINUOUS VENT SUPPORT ON NOTED VENT SETTINGS. HHN INLINE TREATMENT WAS GIVEN , NO ADVERSE REACTION NOTED, PRN SUCTION WAS DONE. ALARMS ARE ON AND AUDIBLE. VENT PLUGGED INTO RED OUTLET. AMBUBAG AND SPARE TRACH AT BEDSIDE.WILL CONTINUE TO MONITOR PATIENT. Addendum: 02/14/19 at 2144 by LASHA BROWN RT Amended: Links added.
[2019-02-14] MEDS: TRAZODONE 50 MG TABLET PO SCH (21:46)
[2019-02-14] MEDS: PREGABALIN 25 MG CAPSULE PO SCH (21:46)
[2019-02-14] MEDS: ZOLPIDEM TARTRATE 5 MG TABLET PO PRN (21:46)
[2019-02-14] MEDS: MUPIROCIN OINT 2% 22 GM TUBE SCH (21:47)
[2019-02-14] MEDS: CEFTRIAXONE 1 G in IV D5W 50 ML IV SCH (21:47)
[2019-02-14] MEDS: AZITHROMYCIN 250 MG TABLET PO SCH (21:48)
[2019-02-15] VITALS (8 sets, daily range): BP systolic 93–120; BP diastolic 35–58
[2019-02-15] MEDS: HYDROMORPHONE 1 MG/1 ML DISP.SYRIN IV PRN ×2 (00:46→09:36)
--- NOTE | 2019-02-15 06:33 | NUR ---
SENIOR ACCOUNT DIRECTOR CLOSING NOTES Patient asleep at this time, no SOB/respiratory discomfort noted. On mechanical vent, settings noted, tolerated well, saturating 100%. All nursing needs attended, no new complaints made. All due meds given as ordered. Medicated for pain, noted effective. Afebrile the whole shift. BP monitored on the leg, no significant fluctuation noted. On tele monitor with Sinus Bradycardia with BBB and occasional PVCs noted. Kept bed low and locked, side rails up. Call light at bedside. Endorsed to the next shift.
[2019-02-15 06:52] LABS: EOSINOPHILS % (AUTO) 2.8 % (0.0-6.0); HEMATOCRIT 25 % (33-45); HEMOGLOBIN 8.1 g/dL (11.5-14.8); LYMPHOCYTES # (AUTO) 0.8 /CMM (0.8-4.8); LYMPHOCYTES % (AUTO) 24.9 % (20.0-44.0); MEAN CORPUSCULAR HGB CONC 32 g/dl (31.0-36.0); MEAN CORPUSCULAR VOLUME 94 fL (82-100); MONOCYTES # (AUTO) 0.3 /CMM (0.1-1.30); MONOCYTES % (AUTO) 7.6 % (2.0-12.0); NEUTROPHILS # (AUTO) 2.2 /CMM (1.8-8.9); NEUTROPHILS % (AUTO) 63.7 % (43.0-81.0); PLATELET COUNT (AUTO) 107 /CMM (150-450); RED BLOOD CELL COUNT(AUTO) 2.66 MIL/uL (4.0-5.2); WHITE BLOOD COUNT (AUTO) 3.4 K/uL (4.3-11.0)
[2019-02-15 07:03] LABS: ALANINE AMINOTRANSFERASE 11 U/L (12-78); ALBUMIN 2.3 g/dL (3.4-5.0); ALKALINE PHOSPHATASE 70 U/L (46-116); ASPARTATE AMINOTRANSFERASE 21 U/L (15-37); BILIRUBIN,TOTAL 0.4 mg/dL (0.2-1.0); CALCIUM, SERUM 7.8 mg/dL (8.5-10.1); CARBON DIOXIDE 26 mmol/L (21-32); CHLORIDE 96 mmol/L (98-107); CREATININE 4.7 mg/dL (0.6-1.3); GLUCOSE 80 mg/dL (74-106); MAGNESIUM 2.4 mg/dL (1.8-2.4); PHOSPHORUS 5.4 mg/dL (2.5-4.9); POTASSIUM 4.4 mmol/L (3.5-5.1); SODIUM SERUM 134 mmol/L (136-145); TOTAL PROTEIN, SERUM 6.6 g/dL (6.4-8.2); UREA NITROGEN, BLOOD 52 mg/dL (7-18)
[2019-02-15 07:04] LABS: IRON, SERUM 36 ug/dl (50-175); TOTAL IRON BINDING CAPACITY 164 ug/dl (250-450)
[2019-02-15 07:29] LABS: FERRITIN 1906 ng/mL (8-388)
--- NOTE | 2019-02-15 08:00 | NUR ---
TELE1/RN AM SHIFT INITIAL NOTES RECEIVED PT ASLEEP IN BED, ACUTE CHANGE OF CONDITION NOTED, PT IS ALERT, DENIES ANY SYMPTOMS AT THIS TIME. ON VENTILATOR WITH RATES SET PRESCRIBED, SATURATING @ 100%, RESPIRATIONS EVEN AND UNLABORED. LUNGS CLEAR, SUCTIONED FOR AIRWAY CLEARANCE. ON TELE MONITORING WITH SINUS CHRISTI WITH BBB AND OCCASIONAL PVCs, HR 59. MIDLINE LINE IN PLACED, FLUSHED, NO S/S OF INFECTION, SL. AV SHUNT POSITION OF THRILL & BRUIT. PT IS COMFORTABLE, SCHEDULED AM MEDS TO BE GIVEN. CL WITHIN REACHED, SAFETY MAINTAINED AND ISOLATION OBSERVED. ON GOING MONITORING.
[2019-02-15] MEDS: ALBUTEROL FS 2.5 MG/3 ML VIAL.NEB NEB SCH ×4 (08:01→19:21)
[2019-02-15] MEDS: MUPIROCIN OINT 2% 22 GM TUBE SCH ×2 (08:19→21:08)
[2019-02-15] MEDS: ropiniROLE 0.5 MG TABLET PO SCH ×3 (08:20→17:19)
[2019-02-15] MEDS: DOCUSATE SODIUM 100 MG CAPSULE PO SCH ×2 (08:20→17:19)
--- NOTE | 2019-02-15 11:15 | NUR ---
TELE1/TWISTER TENDER TX INITIATED HD TX STARTED, BP 95/56, 52 HR. ON GOING MONITORING.
[2019-02-15] MEDS: ACETAMINOPHEN 325 MG TABLET PO PRN (12:02)
--- NOTE | 2019-02-15 14:00 | NUR ---
TELE1/RN ARRHYTHMIA NOTIFIED DR. 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 PT SHOWING NO SYMPTOMS. MONITORING CONTINUED.
--- NOTE | 2019-02-15 14:15 | NUR ---
TELE1/EXPLOSIVE OPERATOR BOMB - COMPLETED DIALYSIS TREATMENT COMPLETED. REMOVED 1,200ML OF FLUID. PT TOLERATED TX. MONITORING CONTINUED.
--- NOTE | 2019-02-15 17:00 | NUR ---
TELE1/RN AFTERNOON ROUNDS NO CHANGE OF CONDITION. PT DENIES ANY SYMPTOMS. SCHEDULED MEDICATION GIVEN. ON GOING MONITORING.
--- NOTE | 2019-02-15 19:04 | NUR ---
TELE1/RN AM SHIFT END NOTES NO ACUTE CHANGE OF CONDITION DURING THE SHIFT, ALL NEEDS MET. PT ENDORSED TO PM NURSE TO CONTINUE CARE. CL WITHIN REACHED, SAFETY MAINTAINED AND ISOLATION OBSERVED.
--- NOTE | 2019-02-15 19:10 | NUR ---
COATING OPERATOR NOTE RECEIVED PATIENT WITH HOB ELEVATED,AOX3, TRACH TO VENT ON SETTINGS ORDERED, PT VERBALLY RESPONSIVE, DENIES PAIN, NO CARDIAC OR RESPIRATORY DISTRESS NOTED, ON TELE SB, INCONTINENT, JOSELO MIDLINE SL, SITE INTACT, PATENT, FLUSHING WELL, SKIN KEPT CLEAN AND DRY, SAFETY MAINTAINED AT ALL TIMES, CALL LIGHT WITHIN REACH, BED IN LOW LOCKED POSITION, WILL CONTINUE TO MONITOR FOR ANY CHANGES.
[2019-02-15] MEDS: PREGABALIN 25 MG CAPSULE PO SCH (21:07)
[2019-02-15] MEDS: CEFTRIAXONE 1 G in IV D5W 50 ML IV SCH (21:07)
[2019-02-15] MEDS: AZITHROMYCIN 250 MG TABLET PO SCH (21:07)
[2019-02-15] MEDS: TRAZODONE 50 MG TABLET PO SCH (21:07)
[2019-02-15] MEDS: ZOLPIDEM TARTRATE 5 MG TABLET PO PRN (21:57)
[2019-02-16] VITALS: BP 100/65
[2019-02-16 00:14] VITALS: BP 100/65
[2019-02-16] MEDS: HYDROCODONE/APAP 5/325MG 1 EACH TABLET PO PRN (01:45)
[2019-02-16 04:00] VITALS: BP 93/51
--- NOTE | 2019-02-16 04:07 | NUR ---
RT PT RECEIVED TRACHED ON [facility] VENT ON CHARTED SETTINGS. PT AWAKE AND RESPONSIVE. NO SIGNS OF DISTRESS NOTED AT THIS TIME. AIRWAY PATENT AND SECURED. PT GIVEN HHN TX. NO ADVERSE REACTION. PT SUCTIONED. ALARMS SET AND AUDIBLE. VENT CONNECTED TO RED OUTLET. WILL CONT TO MONITOR. Addendum: 02/16/19 at 0409 by MCKENNA PADRON RT Amended: Links added.
--- NOTE | 2019-02-16 07:15 | NUR ---
RETURNER OPENING NOTE RECEIVED PT IN BED, ALERT AND ORIENTED X4 WITH TRACH AND VENT. VENTILATOR SETTINGS NOTED TO BE CHARTED AND PT TOLERATING CURRENT SETTINGS. DENIES CHEST PAIN, SOB, N/V. PT ON SAW MAKER W/ SINUS CHRISTI W/ HR 42. LEFT UPPER ARM MIDLINE IS PATENT, CLEAN, DRY AND INTACT. CLINICAL ALARMS CHECKED. CONTACT AND ASPIRATION PRECAUTIONS MAINTAINED. ALL NEEDS ATTENDED TO. BED IS LOCKED AND IN LOWEST POSITION, SIDE RAILS UP X2, BED ALARM ON, CALL LIGHT AND POSSESSIONS WITHIN REACH.
--- NOTE | 2019-02-16 07:30 | NUR ---
STOCK BUYER NOTE INFORMED BY PATIENT SUPPORT TECH THAT BP 7/35. RECHECK BP AND OBTAINED 76/33. PT DENIES CHEST PAIN, SOB, NO CHANGES IN MENTAL STATUS. PT ON TECHNICAL HEALTHCARE CONSULTANT WITH SINUS BRADYCARDIA, HR 57.
--- NOTE | 2019-02-16 07:31 | NUR ---
RN BEHAVIORAL HEALTH NOTE PAGED RT TO TURN OFF PEEP, PER RT HE WILL BE AT THE BEDSIDE SHORTLY.
--- NOTE | 2019-02-16 07:40 | NUR ---
CLINIC PHYSICIAN DIRECTOR NOTE RT AT THE BEDSIDE
[2019-02-16 08:00] VITALS: BP 76/33
[2019-02-16] MEDS: ALBUTEROL FS 2.5 MG/3 ML VIAL.NEB NEB SCH ×3 (08:07→15:30)
--- NOTE | 2019-02-16 08:18 | NUR ---
PT PLACED ON SPEAKING MODE WITH PMV ON PER PT REQUEST TO EAT. CUFF DEFLATED. PT IS AWAKE AND ALERT. AMILCAR NURSE AT BEDSIDE AND IS AWARE OF CHANGES. PEEP DC'D DUE TO HYPOTENSION. ALARMS SET AND AUDIBLE PER POLICY. VENT PLUGGED INTO RED OUTLET. NO RESP. DISTRESS NOTED AT THIS TIME. Addendum: 02/16/19 at 0821 by MYRIAM HANEY RT Amended: Links added.
--- NOTE | 2019-02-16 08:37 | NUR ---
RENDERER NOTE BP RECHECK IS 78/38, HR 67 AFTER PEEP TURNED OFF, PT ATE BREAKFAST. INFORMED THIERRY THOMPSON NP, NO NEW ORDERS AT THIS TIME. PT CONTINUES TO DENY CHEST PAIN, SOB, NO CHANGES IN MENTAL STATUS NOTED AT THIS TIME. PT ON PROFESSOR OF BIOCHEMISTRY WITH SINUS RHYTHM, HR IN 60'S.
[2019-02-16] MEDS: ropiniROLE 0.5 MG TABLET PO SCH ×2 (09:16→14:15)
[2019-02-16] MEDS: DOCUSATE SODIUM 100 MG CAPSULE PO SCH (09:16)
[2019-02-16] MEDS: MUPIROCIN OINT 2% 22 GM TUBE SCH (09:17)
[2019-02-16] MEDS ORDERED: IV NS 0.9% 250 ML BAG IV ONE (10:00)
--- NOTE | 2019-02-16 10:24 | NUR ---
PT TAKEN OFF SPEAKING MODE. PT STATES SHE WANTS TO REST AND THAT THE CUFF BEING DEFLATED IS DRYING HER OUT. CUFF INFLATED, ALARMS SET AND AUDIBLE. PT PLACED BACK ON PREVIOUS SETTINGS. Addendum: 02/16/19 at 1025 by MYRIAM HANEY RT Amended: Links added.
[2019-02-16 12:00] VITALS: BP 104/55
[2019-02-16] MEDS: ACETAMINOPHEN 325 MG TABLET PO PRN (14:18)
--- NOTE | 2019-02-16 15:16 | NUR ---
POLICE SURGEON NOTE SPOKE WITH PALOMO, DAUGHTER REQUESTED. PALOMO AWARE OF AND AGREEABLE TO DISCHARGE.
--- NOTE | 2019-02-16 15:56 | NUR ---
FX ARTIST PT DISCHARGED PT DISCHARGED TO [facility] IN MEDICALLY STABLE CONDITION. PT IS A/OX4, DENIES CHEST PAIN, SOB, N/V. PT IS WITH TRACH AND MECHANICAL VENT, BREATHING IS EVEN AND UNLABORED WITH EQUAL RISE AND FALL OF THE CHEST. VS WITHIN BASELINE. LEFT AV SHUNT POSITIVE FOR BRUIT AND THRILL. RIGHT UPPER ARM MIDLINE REMOVED WITH CATHETER TIP INTACT. WOUND DOCUMENTATION COMPLETED PER PROTOCOL. REPORT GIVEN TO MARIAA LAI FOR CONTINUITY OF CARE. DISCUSSED DR RECOMMENDATIONS TO FOLLOW UP WITH PRIMARY CARE PROVIDER WITHIN 1 WEEK, NO CHANGES TO MEDICATIONS AND NO NEW MEDICATIONS, SKIN TREATMENTS RECOMMENDED. REVIEWED HD DAYS OF SATURDAY, SATURDAY, SATURDAY AT 5:30PM AT [facility]. ADLS AND WOUND CARE PROVIDED PRIOR TO DISCHARGE. PT TURNED AND REPOSITION Q2H FOR THE DURATION OF THE SHIFT. DISCHARGE PAPERWORK AND EDUCATION PROVIDED PER PROTOCOL. REPORT GIVEN TO AMBULANCE STAFF FOR TRANSFER OF CARE.
== END 2019-02-16 15:50 | DRG 194 ==
LOC: ER 15:14 → TELE-TD 20:06 → TELE1 21:36
PROVIDERS: ADMIT Internal Medicine; ATTEND Nurse Practitioner Acute Care
DX: I13.2 Hypertensive heart and chronic kidney disease with heart failure and with stage 5 chronic kidney disease, or end stage renal disease (principal); J96.21 Acute and chronic respiratory failure with hypoxia; Z99.11 Dependence on respirator [ventilator] status; J18.9 Pneumonia, unspecified organism; D61.818 Other pancytopenia; Z93.0 Tracheostomy status; R53.2 Functional quadriplegia; E11.22 Type 2 diabetes mellitus with diabetic chronic kidney disease; N18.6 End stage renal disease; J44.0 Chronic obstructive pulmonary disease with (acute) lower respiratory infection; Z99.2 Dependence on renal dialysis; I50.23 Acute on chronic systolic (congestive) heart failure; E78.5 Hyperlipidemia, unspecified; I25.10 Atherosclerotic heart disease of native coronary artery without angina pectoris; E03.9 Hypothyroidism, unspecified; K21.9 Gastro-esophageal reflux disease without esophagitis; G89.29 Other chronic pain; Z68.38 Body mass index [BMI] 38.0-38.9, adult; E66.01 Morbid (severe) obesity due to excess calories; Z22.322 Carrier or suspected carrier of Methicillin resistant Staphylococcus aureus; Z86.73 Personal history of transient ischemic attack (TIA), and cerebral infarction without residual deficits; L30.4 Erythema intertrigo; L98.9 Disorder of the skin and subcutaneous tissue, unspecified; F03.90 Unspecified dementia, unspecified severity, without behavioral disturbance, psychotic disturbance, mood disturbance, and anxiety; Z79.02 Long term (current) use of antithrombotics/antiplatelets; Z79.4 Long term (current) use of insulin; Z79.899 Other long term (current) drug therapy
CPT/HCPCS: 31720; 36415; 36569; 36600; 71045-TC; 80048-TC; 80053-TC; 80061-TC; 80076-TC; 82272-TC; 82728-TC; 82803-TC; 83540-TC; 83605-TC; 83735-TC; 83880; 84100-TC; 84484-TC; 85025-TC; 85730-TC; 86706; 86713; 87040-TC; 87081-TC; 87340; 90935-TC; 93307-TC; 94002-TC; 94003-TC; 94760-TC; 94762-TC; 94799-TC; A4623; G0378; J0696; J1170; J2405; J7050; J7060; L8501; Q0163

== ENCOUNTER 2019-08-07 10:36 | Outpatient (CLI) | payer MEDICARE, MEDICAID ==
[~2019-08-07 10:36] MED LIST changes: -ALLA266C2 TP; -AMLO5TAB9 PO; +ASPI-1169 PO; -ATOR40TA PO; -BENZ1LOZ12 MM; +BISA10SU11 RC; +CALC667C6 PO; +CYCL5TAB PO; +DEXT15DR6 EACHEYE; +DIPH25CA51 PO; -DIPH25CA6 PO; +ERGO500014 PO; +FERR325T24 PO; -GABA-532 PO; +HEPA50008 SQ; +HYDR-3024 PO; -IBUP-1955 PO; -INSU100I4 SQ; +LACT10SO PO; +LORA-259 PO; -LORA1TAB PO; +OMEP20TA5 PO; +PREG150C PO; -SERT25TA PO; +SEVE2.4P3 PO; +SIME80TA15 PO; -TRAM50TA2 PO; +TRAZ-182 PO; -ZOLP5TAB2 PO
[2019-08-07] MEDS ORDERED: IV NS 0.9% 250 ML IV ONE (11:08)
[2019-08-07] MEDS ORDERED: CT SWABBABLE VALVE TRANS SET 1 EA INFUS.SET MC ONE (11:08)
[2019-08-07] MEDS ORDERED: IOHEXOL-350 100 ML VIAL IV ONE (11:08)
--- NOTE | 2019-08-07 12:32 | NUR ---
18 G STARTED ON RT HAND, TEST INJECTION SHOWED A PSI OF 50, AFTER INJECTING OMN 350 APPROX ABOUT 25CC INFILTRATED IN HAND, COMMUNICATED WITH DR PEREIRA. HE INSTRUCTED ME TO INFORM FACILITY TO ALTERNATE WARM COMPRESSES AND ICE PACK FOR 12 HRS
== END 2019-08-07 23:59 | disposition home or self-care (01) ==
LOC: CT 10:36
PROVIDERS: ATTEND Radiology Diagnostic Radiology
DX: I70.293 Other atherosclerosis of native arteries of extremities, bilateral legs (principal); I70.1 Atherosclerosis of renal artery; I70.0 Atherosclerosis of aorta; K76.89 Other specified diseases of liver; E27.8 Other specified disorders of adrenal gland; N26.1 Atrophy of kidney (terminal); R18.8 Other ascites; I11.0 Hypertensive heart disease with heart failure; I50.9 Heart failure, unspecified; I25.10 Atherosclerotic heart disease of native coronary artery without angina pectoris; J44.9 Chronic obstructive pulmonary disease, unspecified; E11.9 Type 2 diabetes mellitus without complications
CPT/HCPCS: 75635; J7050; Q9967